=== PATIENT | female | born 1960 | race Caucasian/White ===

== ENCOUNTER 2019-06-02 13:00 | Outpatient (RCR) | payer BC, SELFPAY | END 2019-06-02 14:00 | disposition home or self-care (01) | LOC: PT 13:00 | PROVIDERS: Family Provider Family Medicine; Visit Provider Family Medicine | DX: I89.0 Lymphedema, not elsewhere classified (principal); R60.9 Edema, unspecified | CPT/HCPCS: 97140; 97162; 97164; 97760 ==

== ENCOUNTER 2020-04-05 13:00 | Outpatient (RCR) | payer BC, SELFPAY | END 2020-04-05 13:05 | disposition home or self-care (01) | LOC: PT 13:00 | PROVIDERS: Visit Provider Family Medicine | DX: I89.0 Lymphedema, not elsewhere classified (principal) | CPT/HCPCS: 97033; 97035; 97140; 97163; 97164 ==

== ENCOUNTER 2021-10-17 14:00 | Outpatient (RCR) | payer BC, SELFPAY | END 2021-10-17 14:05 | disposition home or self-care (01) | LOC: PT 14:00 | PROVIDERS: Visit Provider Family Medicine | DX: I89.0 Lymphedema, not elsewhere classified (principal) | CPT/HCPCS: 97140; 97162; 97164 ==

== ENCOUNTER → 2022-06-23 14:03 | Outpatient (CLI) | payer BC, SELFPAY ==
[2022-06-23 14:54] LABS: Blood Urea Nitrogen 18 mg/dl (7-17); Estimated Glomerular Filt Rate 102 ml/min (>60); GFR (African American) 123 ML/MIN (>60)
--- NOTE | 2022-06-23 15:15 | MR_ITS ---
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 SX September 2021. Has had constant infection since TECHNIQUE: Imaging protocol: Magnetic resonance imaging of the left lower extremity without and with contrast. Exam focused on the tibia and fibula. Contrast material: PROHANCE; Contrast volume: 27 ml; Contrast route: IV; COMPARISON: No relevant prior studies available. FINDINGS: Limitations: This study is limited due to the absence of consistent cross-referencing between sequences to assess specific findings. Nonanatomic orientation of the coronal and sagittal reformatted images that are not oriented relative to the lower leg but instead are oriented relative to the scanner gantry limits localization of findings. The large field of view needed to image the lower leg precludes a detailed evaluation of the knee and ankle. There is additionally motion artifact, inhomogeneous fat suppression, and artifact presumed due to being too close to the periphery of the scanner. Bones/joints: There is no evidence of osteomyelitis. The bone marrow has heterogeneous signal intensity. The marrow signal intensity is not as low in signal as muscle on T1-weighted sequences and there are preserved foci of marrow fat, making this heterogeneity unlikely to be malignant. Hematopoietic red bone marrow reconversion is favored. This could be confirmed on future MR imaging by adding an opposed phase sequence. Muscles: The muscles are moderately atrophied. Moderate nonspecific edema involves the medial and lateral heads of the gastrocnemius muscle with the remainder of the muscles demonstrating mild edema. This may be due to myositis or denervation. Soft tissues: There is a prominent amount of edema in the subcutaneous fat diffusely. In the subcutaneous fat of the lower leg anteromedially, there is a peripherally enhancing complex fluid collection. This measures 1.1 x 4.1 x 1.2 cm (AP, ML, CC), as measured on series 13/images 11-12 and series 33/image 5. This may represent an abscess. This collection is located 2.3 cm deep to the skin surface and would likely be amenable to percutaneous sampling under ultrasound guidance. Scattered foci of thick-walled hypoenhancing fat suggests fat necrosis. Other findings: Meniscal tearing is suspected. On one of the localizer sequences, the contralateral right lower leg is partially included demonstrating an ovoid fluid collection in the anterior lower leg subcutaneous fat that measures 1.4 x 7.3 cm (AP, ML), as measured on series 2/image 10. This is located 2 cm deep to the skin surface and would likely be amenable to percutaneous sampling under ultrasound guidance. IMPRESSION: 1. Incompletely imaged contralateral right lower leg demonstrating an ovoid fluid collection in the proximal anterior subcutaneous fat measuring 1.4 x 7.3 cm. This is located 2 cm deep to the skin surface and would likely be amenable to percutaneous sampling under ultrasound guidance. 2. Possible abscess involving the subcutaneous fat of the anteromedial left lower leg measuring 1.1 x 4.1 x 1.2 cm. Collection is located 2.3 cm deep to the skin surface and would likely be amenable to percutaneous sampling under ultrasound guidance. 3. Severe diffuse subcutaneous edema consistent with cellulitis. 4. No osteomyelitis. 5. Heterogeneous bone marrow signal, with benign hematopoietic red bone m
== END ==
PROVIDERS: PCP Family Medicine; Visit Provider Internal Medicine Infectious Disease
DX: I89.0 Lymphedema, not elsewhere classified (principal)
CPT/HCPCS: 36415; 73720; 82565; 84520; A9576

== ENCOUNTER 2022-12-21 15:00 | Outpatient (RCR) | payer BC, SELFPAY | END 2022-12-21 15:05 | disposition home or self-care (01) | LOC: OT 15:00 | PROVIDERS: PCP Family Medicine; Visit Provider Orthopaedic Surgery Adult Reconstructive Orthopaedic Surgery | DX: S52.301A Unspecified fracture of shaft of right radius, initial encounter for closed fracture (principal); M25.531 Pain in right wrist | CPT/HCPCS: 97010; 97014; 97035; 97110; 97140; 97164; 97166; 97530; G0283 ==

== ENCOUNTER 2023-05-21 14:00 | Outpatient (RCR) | payer BC, SELFPAY | END 2023-05-21 15:20 | disposition home or self-care (01) | LOC: PT 14:00 | PROVIDERS: Visit Provider Podiatrist | DX: R26.81 Unsteadiness on feet (principal) | CPT/HCPCS: 97110; 97112; 97140; 97163; 97164; 97530; 97535 ==

== ENCOUNTER 2024-02-08 09:31 | Outpatient (CLI) | payer BC, SELFPAY ==
--- NOTE | 2024-02-08 09:35 | XR_ITS ---
FINAL REPORT CLINICAL HISTORY: right knee pain COMPARISON: None FINDINGS: Three views of the right knee reveal a vertical lucency in the medial tibial plateau, and a nondisplaced fracture is not excluded. The bony alignment is normal. Moderate degenerative change is present. There is no evidence of joint effusion. No localized soft tissue abnormality is identified. IMPRESSION: Vertical lucency in the medial tibial plateau, nondisplaced fracture is not excluded. As clinically indicated, MRI would be helpful for further evaluation. Moderate degenerative change. Reviewed, Interpreted and Dictated by Justice Gill III, MD Transcribed by Анна Sinha Authenticated and [facility]
== END 2024-02-08 23:59 | disposition home or self-care (01) ==
LOC: RAD 09:32
PROVIDERS: PCP Family Medicine; Visit Provider Physician Assistant
DX: M25.561 Pain in right knee (principal)
CPT/HCPCS: 73562

== ENCOUNTER 2024-03-24 13:00 | Outpatient (RCR) | payer BC, SELFPAY | END 2024-03-24 23:59 | disposition home or self-care (01) | LOC: PT 13:00 | PROVIDERS: Visit Provider Family Medicine | DX: I89.0 Lymphedema, not elsewhere classified (principal); T81.40XD Infection following a procedure, unspecified, subsequent encounter | CPT/HCPCS: 97140; 97163; 97164; 97760 ==

== ENCOUNTER 2024-04-28 13:00 | Outpatient (RCR) | payer BC, SELFPAY | END 2024-04-28 23:59 | disposition home or self-care (01) | LOC: PT 13:00 | PROVIDERS: Visit Provider Family Medicine | DX: M79.662 Pain in left lower leg (principal); R60.9 Edema, unspecified; T81.40XD Infection following a procedure, unspecified, subsequent encounter | CPT/HCPCS: 97140; 97164 ==

== ENCOUNTER 2024-05-26 13:00 | Outpatient (RCR) | payer BC, SELFPAY | END 2024-05-26 23:59 | disposition home or self-care (01) | LOC: PT 13:00 | PROVIDERS: Visit Provider Family Medicine | DX: I89.0 Lymphedema, not elsewhere classified (principal); T81.40XD Infection following a procedure, unspecified, subsequent encounter | CPT/HCPCS: 97140; 97164 ==

== ENCOUNTER 2024-06-20 15:00 | Outpatient (RCR) | payer BC, SELFPAY | END 2024-06-20 23:59 | disposition home or self-care (01) | LOC: PT 15:00 | PROVIDERS: Visit Provider Family Medicine | DX: T81.40XD Infection following a procedure, unspecified, subsequent encounter (principal); I89.0 Lymphedema, not elsewhere classified | CPT/HCPCS: 97140 ==

== ENCOUNTER 2024-07-21 12:39 | Emergency (ER) | payer BC, SELFPAY ==
[2024-07-21 12:52] VITALS: BP 155/79; PULSE 65; RESP 20; TEMP 36.8; O2SAT 99; BMI 56.3
[2024-07-21 13:00] VITALS: BP 134/71; PULSE 58; O2SAT 99
--- OUTSIDE RECORDS SUMMARY | 2024-07-21 13:06 | XMS_ITS | Data Portability ---
Author Organization [facility] ADMIN Address [address] [place] [id number] Care Team Providers Care Software Test Technician Name Role Phone DENEEN CAMARA Primary Care Provider [phone] Assessment Encounter Date Assessment Date Assessment LastModified by Organization Details LastModified Time 12/22/2022 12/22/2022 I have encouraged her to first speak with ID about abx for the potential drainage which may be more lymph related. If needed we can obtain a culture to help. check labs pt will resume vitamin levels Not available 12/22/2022 12:54:55 05/31/2023 05/31/2023 check labs as noted below adjust medication and supplements pending lab result she will schedule her mammogram and will call if cologuard is to obtain new kit from the company Not available 05/31/2023 12:58:32 12/29/2023 12/29/2023 trial of glp1 if covered check labs except thyroid, plan to do this after she has been back on med for 6+ weeks consider zetia pending lipid result trial of wellbutrin Not available 12/29/2023 17:12:16 03/27/2024 03/27/2024 trial of doxy cold therapy to area elevation compression f/u if needed, may need to see ID if not resolving discussed a trial of 30 days of rybelsus, sample given Not available 03/27/2024 15:16:33 Plan of Treatment Reminders Order Date Submit Date Provider Last Modified By Organization Details Last Modified Time Details Appointments None recorded. Lab lipid panel, serum 2023 024 [facility] ([facility], [address] [place] [address] Ct, [place], [address], 4 11:14:34 CMP, serum or plasma 2023 024 [facility] ([place]), [address] [facility], [place], [address], 4 11:14:32 vitamin B6 + metabolites panel, serum or plasma 2023 024 [facility] ([place]), [address] [facility], [place], [address], 4 11:14:35 vitamin A (retinol), serum 2023 024 [facility], [address], [address], [place], [address], 4 06:08:01 CBC w/ auto diff 2023 024 [facility], [address], [address], [place], [address], 4 06:07:54 lipid panel, serum 2023 024 [facility], [address], [address], [place], [address], 4 06:07:57 CMP, serum or plasma 2023 024 [facility], [address], [address], [place], [address], 4 06:07:56 vitamin B6 + metabolites panel, serum or plasma 2023 024 [facility], [address], [address], [place], [address], 4 06:08:00 vitamin B12 + folate, serum or blood 2023 024 [facility], [address], [address], [place], [address], 4 06:07:59 vitamin D, 25-hydroxy, total, serum 2023 024 [facility]Y [facility], [address], [address], [place], [address], 4 06:08:02 HbA1c (hemoglobin A1c), blood 2023 024 [facility]Y [facility], [address], [address], [place], [address], 4 06:08:00 thyroid panel, serum 2023 024 [facility], [address], [address], [place], [address], 4 06:07:58 thyroid panel, serum 2022 023 [facility], [address], [address], [place], [address], 3 12:39:06 vitamin D, 25-hydroxy, total, serum 2022 023 [facility], [address], [address], [place], [address], 3 12:39:09 lipid panel, serum 2022 023 [facility], [address], [address], [place], [address], 3 12:39:05 CMP, serum or plasma 2022 023 [facility], [address], [address], [place], [address], 3 12:39:03 vitamin B6 + metabolites panel, serum or plasma 2022 023 [facility], [address], [address], [place], [address], 3 12:39:08 vitamin B12 + folate, serum or blood 2022 023 [facility], [address], [address], [place], [address], 3 12:39:07 CBC w/ auto diff 2022 023 [facility], [address], [address], [place], [address], 3 12:39:02 Referral None recorded. Procedures None recorded. Surgeries None recorded. Imaging DEXA [address] (Centralized Scheduling), [address] [facility], [place], [address], 4 11:37:36 Medication Orders doxycycline hyclate 100 mg capsule 2023 024 [facility], [address], [place], [address], 4 08:57:00 levothyroxi ne 50 mcg tablet 2023 024 [facility], [address] [place], [address], 4 14:46:18 Wegovy 0.25 mg/0.5 mL subcutaneou s pen injector 2023 024 [email or web address] [email or web address] [facility], [address] [place], [address], 4 14:15:40 amitriptyli ne 50 mg tablet 2023 024 [facility], [address] [facility] [address], [place], [address], 5 13:37:27 bupropion HCl XL 150 mg 24 hr tablet, extended release 2023 024 [facility], [address] [facility] [address], [place], [address], 5 13:37:27 levothyroxi ne 50 mcg tablet 2022 023 [facility] [id number], [address] [place], [address], 14:37:17 Patient TargetsNo targets recorded. Patient InstructionsNo instructions recorded. Reason for Referral None Reported. Results Created Date Observation Date Name Description Value Unit Range Abnormal Flag Note LastModifiedBy Organization Detail LastModifiedTime 12/23/1912/23/2022 CBC WITH DIFFE RENTI AL/PL ATELE T WBC 5.4 x10e3 /uL 3.4-10 .8 Not Available [facility] ([facility]) [address] [place], [address], 12/25/2022 12:39:02 12/23/1912/23/2022 CBC WITH DIFFE RENTI AL/PL ATELE T RBC 4.53 x10e6 /uL 3.77-5 .28 Not Available [facility] ([facility]) [address] [place], [address], 12/25/2022 12:39:02 12/23/1912/23/2022 CBC WITH DIFFE RENTI AL/PL ATELE T hemoglobin 12.9 g/dL 11.1-1 5.9 Not Available [facility] ([facility]) [address] [place], [address], 12/25/2022 12:39:02 12/23/1912/23/2022 CBC WITH DIFFE RENTI AL/PL ATELE T hematocrit 39.4 % 34.0-4 6.6 Not Available [facility] ([facility]) [address] [place], [address], 12/25/2022 12:39:02 12/23/19 23 12/23/2022 CBC WITH DIFFE RENTI AL/PL ATELE T MCV 87 fL 79-97 Not Available [facility] ([facility]) [address] [facility], [place], [address], 12/25/2022 12:39:02 12/23/1912/23/2022 CBC WITH DIFFE RENTI AL/PL ATELE T MCH 28.5 pg 26.6-3 3.0 Not Available [facility] ([facility]) [address] [place], [address], 12/25/2022 12:39:02 12/23/1912/23/2022 CBC WITH DIFFE RENTI AL/PL ATELE T MCHC 32.7 g/dL 31.5-3 5.7 Not Available [facility] ([facility]) [address] [place], [address], 12/25/2022 12:39:02 12/23/1912/23/2022 CBC WITH DIFFE RENTI AL/PL ATELE T RDW 14.8 % 11.7-1 5.4 Not Available [facility] ([facility]) [address] [place], [address], 12/25/2022 12:39:02 12/23/1912/23/2022 CBC WITH DIFFE RENTI AL/PL ATELE T platelets 193 x10e3 /uL 150-45 0 Not Available [facility] ([facility]) [address] [place], [address], 12/25/2022 12:39:02 12/23/19 23 12/23/2022 CBC WITH DIFFE RENTI AL/PL ATELE T neutrophils 63 % not estab. Not Available [facility] ([facility]) [address] [facility], [place], [address], 12/25/2022 12:39:02 12/23/19 23 12/23/2022 CBC WITH DIFFE RENTI AL/PL ATELE T lymphs 26 % not estab. Not Available [facility] ([facility]) [address] [facility], [place], [address], 12/25/2022 12:39:02 12/23/19 23 12/23/2022 CBC WITH DIFFE RENTI AL/PL ATELE T monocytes 8 % not estab. Not Available [facility] ([facility]) [address] [facility], [place], [address], 12/25/2022 12:39:02 12/23/19 23 12/23/2022 CBC WITH DIFFE RENTI AL/PL ATELE T eos 2 % not estab. Not Available [facility] ([facility]) [address] [facility], [place], [address], 12/25/2022 12:39:02 12/23/19 23 12/23/2022 CBC WITH DIFFE RENTI AL/PL ATELE T basos 1 % not estab. Not Available [facility] ([facility]) [address] [facility], [place], [address], 12/25/2022 12:39:02 12/23/19 23 12/23/2022 CBC WITH DIFFE RENTI AL/PL ATELE T immature cells WOOL PULLER Not Available [facility] ([facility]) [address] [place], [address], 12/25/2022 12:39:02 12/23/19 23 12/23/2022 CBC WITH DIFFE RENTI AL/PL ATELE T neutrophils (absolute) 3.4 x10e3 /uL 1.4-7. 0 Not Available [facility] ([facility]) [address] [place], [address], 12/25/2022 12:39:02 12/23/19 23 12/23/2022 CBC WITH DIFFE RENTI AL/PL ATELE T lymphs (absolute) 1.4 x10e3 /uL 0.7-3. 1 Not Available [facility] ([facility]) [address] [facility], [place], [address], 12/25/2022 12:39:02 12/23/19 23 12/23/2022 CBC WITH DIFFE RENTI AL/PL ATELE T monocytes(ab solute) 0.4 x10e3 /uL 0.1-0. 9 Not Available [facility] ([facility]) [address] [facility], [place], [address], 12/25/2022 12:39:02 12/23/19 23 12/23/2022 CBC WITH DIFFE RENTI AL/PL ATELE T eos (absolute) 0.1 x10e3 /uL 0.0-0. 4 Not Available [facility] ([facility]) [address] [facility], [place], [address], 12/25/2022 12:39:02 12/23/19 23 12/23/2022 CBC WITH DIFFE RENTI AL/PL ATELE T baso (absolute) 0.0 x10e3 /uL 0.0-0. 2 Not Available [facility] ([facility]) [address] [facility], [place], [address], 12/25/2022 12:39:02 12/23/19 23 12/23/2022 CBC WITH DIFFE RENTI AL/PL ATELE T immature granulocytes 0 % not estab. Not Available [facility] ([facility]) [address] [facility], [place], [address], 12/25/2022 12:39:02 12/23/19 23 12/23/2022 CBC WITH DIFFE RENTI AL/PL ATELE T immature grans (abs) 0.0 x10e3 /uL 0.0-0. 1 Not Available [facility] ([facility]) [address], [place], [address], 12/25/2022 12:39:02 12/23/19 23 12/23/2022 CBC WITH DIFFE RENTI AL/PL ATELE T NRBC WOOL PULLER Not Available [facility] ([facility]) [address], [place], [address], 12/25/2022 12:39:02 12/23/19 23 12/23/2022 CBC WITH DIFFE RENTI AL/PL ATELE T hematology comments: WOOL PULLER Not Available [facility] ([facility]) [address], [place], [address], 12/25/2022 12:39:02 12/23/19 23 12/23/2022 COMP. METAB OLIC PANEL (14) glucose 100 mg/dL 70-99 above high normal Not Available [facility] ([facility]) [address] [facility], [place], [address], 12/25/2022 12:39:03 12/23/19 23 12/23/2022 COMP. METAB OLIC PANEL (14) BUN 12 mg/dL 8-27 Not Available [facility] ([facility]) [address] [place], [address], 12/25/2022 12:39:03 12/23/19 23 12/23/2022 COMP. METAB OLIC PANEL (14) creatinine 0.59 mg/dL 0.57-1 .00 Not Available [facility] ([facility]) [address] [place], [address], 12/25/2022 12:39:03 12/23/19 23 12/23/2022 COMP. METAB OLIC PANEL (14) eGFR 102 mL/mi n/1.7 3 >59 Not Available [facility] ([facility]) [address] [facility], [place], [address], 12/25/2022 12:39:03 12/23/19 23 12/23/2022 COMP. METAB OLIC PANEL (14) BUN/creatini ne ratio 03-25 Not Available [facility] ([facility]) [address] [facility], [place], [address], 12/25/2022 12:39:03 12/23/19 23 12/23/2022 COMP. METAB OLIC PANEL (14) sodium 142 mmol/ L 134-14 4 Not Available [facility] ([facility]) [address] [place], [address], 12/25/2022 12:39:03 12/23/19 23 12/23/2022 COMP. METAB OLIC PANEL (14) potassium 4.1 mmol/ L 3.5-5. 2 Not Available [facility] ([facility]) [address] [place], [address], 12/25/2022 12:39:03 12/23/19 23 12/23/2022 COMP. METAB OLIC PANEL (14) chloride 104 mmol/ L 96-106 Not Available [facility] ([facility]) [address] [place], [address], 12/25/2022 12:39:03 12/23/19 23 12/23/2022 COMP. METAB OLIC PANEL (14) carbon dioxide, total 23 mmol/ L - Not Available [facility] ([facility]) [address] [place], [address], 12/25/2022 12:39:03 12/23/19 23 12/23/2022 COMP. METAB OLIC PANEL (14) calcium 8.8 mg/dL 8.7-10 .3 Not Available [facility] ([facility]) [address] [place], [address], 12/25/2022 12:39:03 12/23/19 23 12/23/2022 COMP. METAB OLIC PANEL (14) protein, total 6.1 g/dL 6.0-8. 5 Not Available [facility] ([facility]) [address] [place], [address], 12/25/2022 12:39:03 12/23/19 23 12/23/2022 COMP. METAB OLIC PANEL (14) albumin 4.0 g/dL 3.9-4. 9 Not Available [facility] ([facility]) [address] [place], [address], 12/25/2022 12:39:03 12/23/19 23 12/23/2022 COMP. METAB OLIC PANEL (14) globulin, total 2.1 g/dL 1.5-4. 5 Not Available [facility] ([facility]) [address] [place], [address], 12/25/2022 12:39:03 12/23/19 23 12/23/2022 COMP. METAB OLIC PANEL (14) A/G ratio 1.9 1.2-2. 2 Not Available [facility] ([facility]) [address] [place], [address], 12/25/2022 12:39:03 12/23/19 23 12/23/2022 COMP. METAB OLIC PANEL (14) bilirubin, total 0.7 mg/dL 0.0-1. 2 Not Available [facility] ([facility]) [address] [place], [address], 12/25/2022 12:39:03 12/23/19 23 12/23/2022 COMP. METAB OLIC PANEL (14) alkaline phosphatase 128 IU/L 44-121 above high normal Not Available [facility] ([facility]) [address] [place], [address], 12/25/2022 12:39:03 12/23/19 23 12/23/2022 COMP. METAB OLIC PANEL (14) AST (SGOT) 35 IU/L 0-40 Not Available [facility] ([facility]) [address] [place], [address], 12/25/2022 12:39:03 12/23/19 23 12/23/2022 COMP. METAB OLIC PANEL (14) ALT (SGPT) 30 IU/L 0-32 Not Available [facility] ([facility]) [address] [place], [address], 12/25/2022 12:39:03 12/23/19 23 12/23/2022 LIPID PANEL cholesterol, total 245 mg/dL 100-19 9 above high normal Not Available [facility] ([facility]) [address] [place], [address], 12/25/2022 12:39:05 12/23/19 23 12/23/2022 LIPID PANEL triglyceride s 67 mg/dL 0-149 Not Available [facility] ([facility]) [address] [place], [address], 12/25/2022 12:39:05 12/23/19 23 12/23/2022 LIPID PANEL HDL cholesterol 83 mg/dL >39 Not Available [facility] ([facility]) [address] [place], [address], 12/25/2022 12:39:05 12/23/19 23 12/23/2022 LIPID PANEL VLDL cholesterol deborah 11 mg/dL 5-40 Not Available [facility] ([facility]) [address] [place], [address], 12/25/2022 12:39:05 12/23/19 23 12/23/2022 LIPID PANEL LDL chol calc ([facility]) 151 mg/dL 0-99 above high normal Not Available [facility] ([facility]) [address] [place], [address], 12/25/2022 12:39:05 09/12/23/2022 LIPID PANEL comment: WOOL PULLER Not Available [facility] ([facility]) [address] [place], [address], 12/25/2022 12:39:05 12/23/19 23 12/23/2022 THYRO ID PROFI LE II TSH 4.580 uIU/m L 0.450- 4.500 above high normal Not Available [facility] ([facility]) [address] [place], [address], 12/25/2022 12:39:06 12/23/19 23 12/23/2022 THYRO ID PROFI LE II thyroxine (T4) 6.8 ug/dL 4.5-12 .0 Not Available [facility] ([facility]) [address] [place], [address], 12/25/2022 12:39:06 12/23/19 23 12/23/2022 THYRO ID PROFI LE II T3 uptake 29 % 24-39 Not Available [facility] ([facility]) [address] [place], [address], 12/25/2022 12:39:06 12/23/1912/23/2022 THYRO ID PROFI LE II free thyroxine index 2.0 1.2-4. 9 Not Available [facility] ([facility]) [address] [place], [address], 12/25/2022 12:39:06 12/23/1912/23/2022 THYRO ID PROFI LE II triiodothyro nine (T3) 103 NG/dL 71-180 Not Available [facility] ([facility]) [address] [place], [address], 12/25/2022 12:39:06 12/23/19 23 12/23/2022 VITAM IN B12 AND FOLAT E vitamin B12 1291 pg/mL 232-12 45 above high normal Not Available [facility] ([facility]) [address] [place], [address], 12/25/2022 12:39:07 12/23/19 23 12/23/2022 VITAM IN B12 AND FOLAT E folate (folic acid), serum 4.1 NG/mL >3.0 A serum folat e garcía ntrat ion of less than 3.1 ng/mL is consi dered to repre sent clini deborah defic iency . Not Available [facility] ([facility]) [address] [facility], [place], [address], 12/25/2022 12:39:07 12/23/19 23 12/25/2022 VITAM IN B6, PLASM A vitamin B6 22.2 ug/L 3.4-65 .2 Defic iency : <3.4 Feli nal: 3.4 - 5.1 Adequ ate: >5.1 Not Available [facility] ([facility]) [address] [facility], [place], [address], 12/25/2022 12:39:08 12/23/19 23 12/23/2022 VITAM IN D, 25-HY DROXY vitamin D, 25-hydroxy 35.2 NG/mL 30.0-1 00.0 Vitam in D defic iency has been defin ed by the Insti tute of Medic ine and an Endoc rine Socie ty pract ice guide line as a level of serum 25-OH vitam in D less than 20 ng/mL (1,2) . The Endoc rine Socie ty went on to furth er defin e vitam in D insuf ficie ncy as a level betwe en 21 and 29 ng/mL (2). 1. IOM (Inst itute of Medic ine). 2010. Dieta ry refer ence jamar es for calci um and D. Cheryl hernandez [place]: The Natio nal [facility] Press . 2. Lorena junior [place], Binkarina ey [place], Taras off-F errar i CONNOLLY, et al. Evalu ation , treat ment, and preve ntion of vitam in D defic iency : an Endoc rine Socie ty clini deborah pract ice guide line. JCEM. 2010; 96(7) :1911 -30. Not Available [facility] ([facility]) [address] [facility], [place], [address], 12/25/2022 12:39:09 12/24/19 23 12/28/2022 ANAER OBIC AND AEROB IC CULTU RE anaerobic culture FINAL REPORT Not Available [facility] ([facility]) [address] [facility], [place], [address], 01/01/2023 14:36:39 12/24/19 23 12/28/2022 ANAER OBIC AND AEROB IC CULTU RE result 1 COMMEN T No anaer obic growt h in 72 hours . Not Available [facility] ([facility]) [address] [facility], [place], [address], 01/01/2023 14:36:39 12/24/19 23 01/01/2023 ANAER OBIC AND AEROB IC CULTU RE aerobic culture FINAL REPORT abnormal Not Available [facility] ([facility]) [address] [facility], [place], [address], 01/01/2023 14:36:39 12/24/19 23 01/01/2023 ANAER OBIC AND AEROB IC CULTU RE result 1 COMMEN T abnormal Methi cilli n - resis tant Staph yloco ccus aureu s Based on resis tance to oxaci llin this isola te would be resis tant to all curre ntly avail able beta- lacta m antim icrob ial agent s, with the excep tion of the newer cepha lospo rins with anti- MRSA activ ity, such as Cefta rolin e Moder ate growt h Not Available [facility] ([facility]) [address] [facility], [place], [address], 01/01/2023 14:36:39 12/24/19 23 01/01/2023 ANAER OBIC AND AEROB IC CULTU RE result 2 KLEBSI YANNICK OXYTOC A abnormal Light growt h Not Available [facility] ([facility]) [address] [facility], [place], [address], 01/01/2023 14:36:39 12/24/19 23 01/01/2023 ANAER OBIC AND AEROB IC CULTU RE result 3 COMMEN T abnormal Beta hemol ytic Strep tococ cus, group B Heavy growt h Penic illin and ampic illin are drugs of choic e for treat ment of beta- hemol ytic strep tococ deborah infec tions . Susce ptibi lity testi ng of penic illin s and other beta- lacta m agent s appro jose by the FDA for treat ment of beta- hemol ytic strep tococ deborah infec tions need not be perfo rmed routi dafne becau se nonsu scept ible isola susie are extre elkin rare in any beta- hemol ytic strep tococ cus and have not been repor cathie for Strep tococ cus pyoge richard (grou p A). (CLSI ) Not Available [facility] ([facility]) [address] [facility], [place], [address], 01/01/2023 14:36:39 12/24/19 23 01/01/2023 ANAER OBIC AND AEROB IC CULTU RE antimicrobia l susceptibili ty COMMEN T S = Susce ptibl e; I = Inter media te; R = Resis tant P = Posit radha; N = Negat radha MICS are expre ssed in micro grams per mL Antib iotic RSLT# 1 RSLT# 2 RSLT# 3 RSLT# 4 Amoxi cilli n/Cla vulan ic Acid S Ampic illin R Cefep emerita S Ceftr iaxon e S Cefur oxime S Cipro floxa lester R S Clind amyci n S Eryth romyc in S Genta micin S S Imipe nem S Levof loxac in R S Linez olid S Merop enem S Oxaci llin R Penic illin R Rifam pin S Tetra cycli ne S S Tobra mycin S Trime thopr im/Maher lfa R S Vanco mycin S Not Available [facility] ([facility]) [address] [facility], [place], [address], 01/01/2023 14:36:39 05/31/19 24 06/01/2023 CBC WITH DIFFE RENTI AL/PL ATELE T WBC 4.9 x10e3 /uL 3.4-10 .8 Not Available [facility] ([facility]) [address] [facility], [place], [address], 06/07/2023 06:07:54 05/31/19 24 06/01/2023 CBC WITH DIFFE RENTI AL/PL ATELE T RBC 4.24 x10e6 /uL 3.77-5 .28 Not Available [facility] ([facility]) [address] [facility], [place], [address], 06/07/2023 06:07:54 05/31/19 24 06/01/2023 CBC WITH DIFFE RENTI AL/PL ATELE T hemoglobin 12.7 g/dL 11.1-1 5.9 Not Available [facility] ([facility]) [address] [facility], [place], [address], 06/07/2023 06:07:54 05/31/19 24 06/01/2023 CBC WITH DIFFE RENTI AL/PL ATELE T hematocrit 39.4 % 34.0-4 6.6 Not Available [facility] ([facility]) [address] [facility], [place], [address], 06/07/2023 06:07:54 05/31/19 24 06/01/2023 CBC WITH DIFFE RENTI AL/PL ATELE T MCV 93 fL 79-97 Not Available [facility] ([facility]) [address] [place], [address], 06/07/2023 06:07:54 05/31/19 24 06/01/2023 CBC WITH DIFFE RENTI AL/PL ATELE T MCH 30.0 pg 26.6-3 3.0 Not Available [facility] ([facility]) [address] [facility], [place], [address], 06/07/2023 06:07:54 05/31/19 24 06/01/2023 CBC WITH DIFFE RENTI AL/PL ATELE T MCHC 32.2 g/dL 31.5-3 5.7 Not Available [facility] ([facility]) [address] [facility], [place], [address], 06/07/2023 06:07:54 05/31/19 24 06/01/2023 CBC WITH DIFFE RENTI AL/PL ATELE T RDW 14.1 % 11.7-1 5.4 Not Available [facility] ([facility]) [address] [facility], [place], [address], 06/07/2023 06:07:54 05/31/19 24 06/01/2023 CBC WITH DIFFE RENTI AL/PL ATELE T platelets 185 x10e3 /uL 150-45 0 Not Available [facility] ([facility]) [address] [facility], [place], [address], 06/07/2023 06:07:54 05/31/19 24 06/01/2023 CBC WITH DIFFE RENTI AL/PL ATELE T neutrophils 65 % not estab. Not Available [facility] ([facility]) [address] [facility], [place], [address], 06/07/2023 06:07:54 05/31/19 24 06/01/2023 CBC WITH DIFFE RENTI AL/PL ATELE T lymphs 26 % not estab. Not Available [facility] ([facility]) [address] [facility], [place], [address], 06/07/2023 06:07:54 05/31/19 24 06/01/2023 CBC WITH DIFFE RENTI AL/PL ATELE T monocytes 5 % not estab. Not Available [facility] ([facility]) [address] [facility], [place], [address], 06/07/2023 06:07:54 05/31/19 24 06/01/2023 CBC WITH DIFFE RENTI AL/PL ATELE T eos 3 % not estab. Not Available [facility] ([facility]) [address] [place], [address], 06/07/2023 06:07:54 05/31/19 24 06/01/2023 CBC WITH DIFFE RENTI AL/PL ATELE T basos 1 % not estab. Not Available [facility] ([facility]) [address] [place], [address], 06/07/2023 06:07:54 05/31/19 24 06/01/2023 CBC WITH DIFFE RENTI AL/PL ATELE T immature cells WOOL PULLER Not Available [facility] ([facility]) [address] [place], [address], 06/07/2023 06:07:54 05/31/19 24 06/01/2023 CBC WITH DIFFE RENTI AL/PL ATELE T neutrophils (absolute) 3.2 x10e3 /uL 1.4-7. 0 Not Available [facility] ([facility]) [address] [place], [address], 06/07/2023 06:07:54 05/31/19 24 06/01/2023 CBC WITH DIFFE RENTI AL/PL ATELE T lymphs (absolute) 1.3 x10e3 /uL 0.7-3. 1 Not Available [facility] ([facility]) [address] [place], [address], 06/07/2023 06:07:54 05/31/19 24 06/01/2023 CBC WITH DIFFE RENTI AL/PL ATELE T monocytes(ab solute) 0.2 x10e3 /uL 0.1-0. 9 Not Available [facility] ([facility]) [address] [place], [address], 06/07/2023 06:07:54 05/31/19 24 06/01/2023 CBC WITH DIFFE RENTI AL/PL ATELE T eos (absolute) 0.1 x10e3 /uL 0.0-0. 4 Not Available [facility] ([facility]) [address] [facility], [place], [address], 06/07/2023 06:07:54 05/31/19 24 06/01/2023 CBC WITH DIFFE RENTI AL/PL ATELE T baso (absolute) 0.0 x10e3 /uL 0.0-0. 2 Not Available [facility] ([facility]) [address] [facility], [place], [address], 06/07/2023 06:07:54 05/31/19 24 06/01/2023 CBC WITH DIFFE RENTI AL/PL ATELE T immature granulocytes 0 % not estab. Not Available [facility] ([facility]) [address] [facility], [place], [address], 06/07/2023 06:07:54 05/31/19 24 06/01/2023 CBC WITH DIFFE RENTI AL/PL ATELE T immature grans (abs) 0.0 x10e3 /uL 0.0-0. 1 Not Available [facility] ([facility]) [address] [facility], [place], [address], 06/07/2023 06:07:54 05/31/19 24 06/01/2023 CBC WITH DIFFE RENTI AL/PL ATELE T NRBC WOOL PULLER Not Available [facility] ([facility]) [address] [facility], [place], [address], 06/07/2023 06:07:54 05/31/19 24 06/01/2023 CBC WITH DIFFE RENTI AL/PL ATELE T hematology comments: WOOL PULLER Not Available [facility] ([facility]) [address] [facility], [place], [address], 06/07/2023 06:07:54 05/31/19 24 06/01/2023 COMP. METAB OLIC PANEL (14) glucose 90 mg/dL 70-99 Not Available [facility] ([facility]) [address] [place], [address], 06/07/2023 06:07:56 05/31/19 24 06/01/2023 COMP. METAB OLIC PANEL (14) BUN 12 mg/dL 8-27 Not Available [facility] ([facility]) [address] [place], [address], 06/07/2023 06:07:56 05/31/19 24 06/01/2023 COMP. METAB OLIC PANEL (14) creatinine 0.58 mg/dL 0.57-1 .00 Not Available [facility] ([facility]) [address] [place], [address], 06/07/2023 06:07:56 05/31/19 24 06/01/2023 COMP. METAB OLIC PANEL (14) eGFR 103 mL/mi n/1.7 3 >59 Not Available [facility] ([facility]) [address] [place], [address], 06/07/2023 06:07:56 05/31/19 24 06/01/2023 COMP. METAB OLIC PANEL (14) BUN/creatini ne ratio 21 12-28 Not Available [facility] ([facility]) [address] [place], [address], 06/07/2023 06:07:56 05/31/19 24 06/01/2023 COMP. METAB OLIC PANEL (14) sodium 143 mmol/ L 134-14 4 Not Available [facility] ([facility]) [address] [place], [address], 06/07/2023 06:07:56 05/31/19 24 06/01/2023 COMP. METAB OLIC PANEL (14) potassium 4.0 mmol/ L 3.5-5. 2 Not Available [facility] ([facility]) [address] [place], [address], 06/07/2023 06:07:56 05/31/19 24 06/01/2023 COMP. METAB OLIC PANEL (14) chloride 106 mmol/ L 96-106 Not Available [facility] ([facility]) [address] [place], [address], 06/07/2023 06:07:56 05/31/19 24 06/01/2023 COMP. METAB OLIC PANEL (14) carbon dioxide, total 22 mmol/ L 20-29 Not Available [facility] ([facility]) [address] [place], [address], 06/07/2023 06:07:56 05/31/19 24 06/01/2023 COMP. METAB OLIC PANEL (14) calcium 8.6 mg/dL 8.7-10 .3 below low normal Not Available [facility] ([facility]) [address] [place], [address], 06/07/2023 06:07:56 05/31/19 24 06/01/2023 COMP. METAB OLIC PANEL (14) protein, total 6.0 g/dL 6.0-8. 5 Not Available [facility] ([facility]) [address] [place], [address], 06/07/2023 06:07:56 05/31/19 24 06/01/2023 COMP. METAB OLIC PANEL (14) albumin 3.7 g/dL 3.9-4. 9 below low normal Not Available [facility] ([facility]) [address] [place], [address], 06/07/2023 06:07:56 05/31/19 24 06/01/2023 COMP. METAB OLIC PANEL (14) globulin, total 2.3 g/dL 1.5-4. 5 Not Available [facility] ([facility]) [address] [place], [address], 06/07/2023 06:07:56 05/31/19 24 06/01/2023 COMP. METAB OLIC PANEL (14) A/G ratio 1.6 1.2-2. 2 Not Available [facility] ([facility]) [address] [place], [address], 06/07/2023 06:07:56 05/31/19 24 06/01/2023 COMP. METAB OLIC PANEL (14) bilirubin, total 0.6 mg/dL 0.0-1. 2 Not Available [facility] ([facility]) [address] [place], [address], 06/07/2023 06:07:56 05/31/19 24 06/01/2023 COMP. METAB OLIC PANEL (14) alkaline phosphatase 144 IU/L 44-121 above high normal Not Available [facility] ([facility]) [address] [place], [address], 06/07/2023 06:07:56 05/31/19 24 06/01/2023 COMP. METAB OLIC PANEL (14) AST (SGOT) 24 IU/L 0-40 Not Available [facility] [address] [facility] [place] [address], 06/07/2023 06:07:56 05/31/19 24 06/01/2023 COMP. METAB OLIC PANEL (14) ALT (SGPT) 15 IU/L 0-32 Not Available [facility] ([facility] [address] [facility] [place], [address], 06/07/2023 06:07:56 05/31/19 24 06/01/2023 LIPID PANEL cholesterol, total 257 mg/dL 100-19 9 above high normal Not Available [facility] ([facility] [address] [place], [address], 06/07/2023 06:07:57 05/31/19 24 06/01/2023 LIPID PANEL triglyceride s 66 mg/dL 0-149 Not Available [facility] ([facility]) [address] [place], [address], 06/07/2023 06:07:57 05/31/19 24 06/01/2023 LIPID PANEL HDL cholesterol 87 mg/dL >39 Not Available [facility] ([facility]) [address] [place], [address], 06/07/2023 06:07:57 05/31/19 24 06/01/2023 LIPID PANEL VLDL cholesterol deborah 11 mg/dL 5-40 Not Available [facility] ([facility]) [address] [place], [address], 06/07/2023 06:07:57 05/31/19 24 06/01/2023 LIPID PANEL LDL chol calc ([facility]) 159 mg/dL 0-99 above high normal Not Available [facility] ([facility]) [address] [place], [address], 06/07/2023 06:07:57 05/31/19 24 06/01/2023 LIPID PANEL comment: WOOL PULLER Not Available [facility] ([facility]) [address] [place], [address], 06/07/2023 06:07:57 05/31/19 24 06/01/2023 THYRO ID PROFI LE II TSH 1.450 uIU/m L 0.450- 4.500 Not Available [facility] ([facility]) [address] [place], [address], 06/07/2023 06:07:58 05/31/19 24 06/01/2023 THYRO ID PROFI LE II thyroxine (T4) 6.5 ug/dL 4.5-12 .0 Not Available [facility] ([facility]) [address] [place], [address], 06/07/2023 06:07:58 05/31/19 24 06/01/2023 THYRO ID PROFI LE II T3 uptake 27 % 24-39 Not Available [facility] ([facility]) [address] [facility] [place], [address], 06/07/2023 06:07:58 05/31/19 24 06/01/2023 THYRO ID PROFI LE II free thyroxine index 1.8 1.2-4. 9 Not Available [facility] ([facility]) [address] [place], [address], 06/07/2023 06:07:58 05/31/19 24 06/01/2023 THYRO ID PROFI LE II triiodothyro nine (T3) 68 NG/dL 71-180 below low normal Not Available [facility] ([facility]) [address] [place], [address], 06/07/2023 06:07:58 05/31/19 24 06/01/2023 VITAM IN B12 AND FOLAT E vitamin B12 1515 pg/mL 232-12 45 above high normal Not Available [facility] ([facility]) [address] [place], [address], 06/07/2023 06:07:59 05/31/19 24 06/01/2023 VITAM IN B12 AND FOLAT E folate (folic acid), serum 5.5 NG/mL >3.0 A serum folat e garcía ntrat ion of less than 3.1 ng/mL is consi dered to repre sent clini deborah defic iency . Not Available [facility] ([facility]) [address] [place], [address], 06/07/2023 06:07:59 05/31/19 24 06/01/2023 HEMOG LOBIN A1C hemoglobin A1C 5.5 % 4.8-5. 6 Predi abete s: 5.7 - 6.4 Diabe susie: >6.4 Glyce wayne contr ol for adult s with diabe susie: <7.0 Not Available [facility] ([facility]) [address] [facility], [place], [address], 06/07/2023 06:07:59 05/31/19 24 06/04/2023 VITAM IN B6, PLASM A vitamin B6 2.2 ug/L 3.4-65 .2 below low normal Defic iency : <3.4 Feli nal: 3.4 - 5.1 Adequ ate: >5.1 Not Available [facility] ([facility]) [address] [facility], [place], [address], 06/07/2023 06:08:00 05/31/19 24 06/07/2023 VITAM IN A, SERUM vitamin A 27.3 ug/dL 22.0-6 9.5 Refer ence inter vals for vitam in A deter mined from [facility] inter nal studi es. Indiv idual s with vitam in A less than 20 ug/dL are consi dered vitam in A defic ient and those with serum garcía ntrat ions less than 10 ug/dL are consi dered sever marlene defic ient. This test was rick falcon and its perfo rmanc e austen cteri stics deter mined by [facility]. It has not been clear ed or appro jose by the Food and Drug Admin istra tion. Not Available [facility] ([facility]) [address] [facility], [place], [address], 06/07/2023 06:08:01 05/31/19 24 06/01/2023 VITAM IN D, 25-HY DROXY vitamin D, 25-hydroxy 29.0 NG/mL 30.0-1 00.0 below low normal Vitam in D defic iency has been defin ed by the Insti tute of Medic ine and an Endoc rine Socie ty pract ice guide line as a level of serum 25-OH vitam in D less than 20 ng/mL (1,2) . The Endoc rine Socie ty went on to [facility] defin e vitam in D insuf ficie ncy as a level betwe en 21 and 29 ng/mL (2). 1. IOM (Inst itute of Medic ine). 2009. Dieta ry refer ence jamar es for calci um and D. Cheryl hernandez [place]: [facility] . 2. Holic k MF, Binkl ey [place], Bisch off-F errar i CONNOLLY, et al. Evalu ation , treat ment, and preve ntion of vitam in D defic iency : an Endoc rine Socie clini deborah pract ice guide line. JCEM. 2010; 96(7) :1911 -30. Not Available [facility] ([facility]) [address] [place], [address], 06/07/2023 06:08:02 02/04/20 24 02/05/2024 COMP. METAB OLIC PANEL (14) glucose 85 mg/dL 70-99 normal Not Available [facility] ([facility]) [address] [place], [address], 02/09/2024 11:14:32 02/04/20 24 02/05/2024 COMP. METAB OLIC PANEL (14) BUN 8 mg/dL 8-27 normal Not Available [facility] ([facility]) [address] [place], [address], 02/09/2024 11:14:32 02/04/20 24 02/05/2024 COMP. METAB OLIC PANEL (14) creatinine 0.52 mg/dL 0.57-1 .00 below low normal Not Available [facility] ([facility]) [address] [place], [address], 02/09/2024 11:14:32 02/04/20 24 02/05/2024 COMP. METAB OLIC PANEL (14) eGFR 105 mL/mi n/1.7 3 >59 normal Not Available [facility] ([facility]) [address] [place], [address], 02/09/2024 11:14:32 02/04/20 24 02/05/2024 COMP. METAB OLIC PANEL (14) BUN/creatini ne ratio 15 12-28 normal Not Available [facility] ([facility]) [address] [facility], [place], [address], 02/09/2024 11:14:32 02/04/20 24 02/05/2024 COMP. METAB OLIC PANEL (14) sodium 143 mmol/ L 134-14 4 normal Not Available [facility] ([facility]) [address] [facility] [place], [address], 02/09/2024 11:14:32 02/04/20 24 02/05/2024 COMP. METAB OLIC PANEL (14) potassium 4.2 mmol/ L 3.5-5. 2 normal Not Available [facility] ([facility]) [address] [facility], [place], [address], 02/09/2024 11:14:32 02/04/20 24 02/05/2024 COMP. METAB OLIC PANEL (14) chloride 105 mmol/ L 96-106 normal Not Available [facility] ([facility]) [address] [facility], [place], [address], 02/09/2024 11:14:32 02/04/20 24 02/05/2024 COMP. METAB OLIC PANEL (14) carbon dioxide, total 25 mmol/ L 20-29 normal Not Available [facility] ([facility]) [address] [place], [address], 02/09/2024 11:14:32 02/04/20 24 02/05/2024 COMP. METAB OLIC PANEL (14) calcium 8.8 mg/dL 8.7-10 .3 normal Not Available [facility] ([facility]) [address] [facility] [place], [address], 02/09/2024 11:14:32 02/04/20 24 02/05/2024 COMP. METAB OLIC PANEL (14) protein, total 5.9 g/dL 6.0-8. 5 below low normal Not Available [facility] ([facility]) [address] [place], [address], 02/09/2024 11:14:32 02/04/20 24 02/05/2024 COMP. METAB OLIC PANEL (14) albumin 4.0 g/dL 3.9-4. 9 normal Not Available [facility] ([facility]) [address] [place], [address], 02/09/2024 11:14:32 02/04/20 24 02/05/2024 COMP. METAB OLIC PANEL (14) globulin, total 1.9 g/dL 1.5-4. 5 Not Available [facility] ([facility]) [address] [place], [address], 02/09/2024 11:14:32 02/04/20 24 02/05/2024 COMP. METAB OLIC PANEL (14) bilirubin, total 0.6 mg/dL 0.0-1. 2 normal Not Available [facility] ([facility]) [address] [place], [address], 02/09/2024 11:14:32 02/04/20 24 02/05/2024 COMP. METAB OLIC PANEL (14) alkaline phosphatase 163 IU/L 44-121 above high normal Not Available [facility] ([facility]) [address] [place], [address], 02/09/2024 11:14:32 02/04/20 24 02/05/2024 COMP. METAB OLIC PANEL (14) AST (SGOT) 26 IU/L 0-40 normal Not Available [facility] ([facility]) [address] [facility] [place], [address], 02/09/2024 11:14:32 02/04/20 24 02/05/2024 COMP. METAB OLIC PANEL (14) ALT (SGPT) 15 IU/L 0-32 normal Not Available [facility] ([facility]) [address] [place], [address], 02/09/2024 11:14:32 02/04/20 24 02/05/2024 LIPID PANEL cholesterol, total 254 mg/dL 100-19 9 above high normal Not Available [facility] ([facility]) [address] [place], [address], 02/09/2024 11:14:33 02/04/20 24 02/05/2024 LIPID PANEL triglyceride s 79 mg/dL 0-149 normal Not Available [facility] ([facility]) [address] [place], [address], 02/09/2024 11:14:33 02/04/20 24 02/05/2024 LIPID PANEL HDL cholesterol 87 mg/dL >39 normal Not Available [facility] ([facility]) [address] [place], [address], 02/09/2024 11:14:33 02/04/20 24 02/05/2024 LIPID PANEL VLDL cholesterol deborah 13 mg/dL 5-40 Not Available [facility] ([facility]) [address] [place], [address], 02/09/2024 11:14:33 02/04/20 24 02/05/2024 LIPID PANEL LDL chol calc ([facility]) 154 mg/dL 0-99 above high normal Not Available [facility] ([facility]) [address] [place], [address], 02/09/2024 11:14:33 02/04/20 24 02/05/2024 LIPID PANEL LDL calc comment: WOOL PULLER Not Available [facility] ([facility]) [address] [place], [address], 02/09/2024 11:14:33 02/04/20 24 02/09/2024 VITAM IN B6, PLASM A vitamin B6 3.0 ug/L 3.4-65 .2 below low normal Defic iency : <3.4 Feli nal: 3.4 - 5.1 Adequ ate: >5.1 Not Available [facility] ([facility]) [address] [facility], [place], [address], 02/09/2024 11:14:35 07/12/19 24 07/12/2023 leticia scrn mammo w/CAD bilat [facility] [address] [place] [address] Phone: Fax: Name: JAYLENE FLORES Exam Date: : [birth year] Age 62 years Gender : F Access ion: [id number] Physic zuleyma: DENEEN MEDINA Facili ty: [facility] Facili ty HSV: Outpat ient Exam: LETICIA SCRN MAMMO W/CAD BILAT MAMMOG CINTHYA SCREEN ING BILATE RAL HISTOR Y: Routin e screen ing exam COMPAR STEPHANIA: Februa ry 2022 TECHNI QUE: Standa rd digita l 2-D views with 3-D tomosy nthesi s DENSIT Y: There are scatte red areas of fibrog landul ar densit y FINDIN GS: Benign calcif icatio ns. Scatte red areas of focal asymme try are noted. No new suspic ious mass, suspic ious calcif icatio ns or lashonda ectura l distor tion is presen t. IMPRES LUCIANA: No mammog raphic eviden ce of malign karen BI-RAD S 2: Benign findin g RECOMM ENDATI ON: Annual mammog giovanni CAD was utiliz ed during interp retati on. The patien t will be sent a letter from the mammog giovanni depart ment with their mammog giovanni result s. Dictat ed By: Sangita Quintero ribed By: Sangita Shelley ribed On: 024 1:35 PM Electr onical ly signed by: Sangita Quintero 024 Thank you for referr JAYLENE Martines to [facility]. Legall y authen ticate d by CYNDIE BRADFORD 2023-0 07-11 13:35: 22 CC'ed Logic: Orderi ng Provid er: [facility]A BROTHERS CC Provid er: [facility]A BROTHERS Attend ing Provid er: HOA BROTHERS Admitt ing Provid er: HOA BROTHERS [facility] [address] [facility], [place], [address], 07/12/2023 20:47:19 02/08/20 24 02/08/2024 imagi ng inter preta tion No observ ation record ed. [address], [place], [address], 02/08/2024 17:00:22 03/28/20 24 03/27/2024 dexa bone densi ty AX [facility] [address] [place] [address] Phone: Fax: Name: JAYLENE FLORES Exam Date: 2023 : 9[birth year] Age 63 years Gender : F Access ion: [id number] Physic zuleyma: DENEEN MEDINA Facili ty: [facility] Facili ty HSV: Outpat ient Exam: DEXA BONE DENSIT Y AX EXAMIN ATION: DUAL X-RAY ABSORP TIOMET RY (DXA) FOR BONE MINERA L DENSIT Y. CLINIC AL INDICA TION: 63 years old, Female . Postme nopaus al. Screen ing for osteop orosis . TECHNI QUE: An axial (e.g., hips, spine) and/or append icular (e.g., radius ) exam was perfor med, as approp riate, using [employer] iDXA densit ometer . Images are obtain ed for bone minera l densit y measur ement and are not obtain ed for diagno stic purpos es. [id number] 2 COMPAR STEPHANIA: None. FINDIN GS: Scan qualit y: Good. LUMBAR SPINE (L1-L4 ): BMD (in g/cm*2 ): 1.092. T-scor e: -0.8. Z-scor e: 0.6. LEFT FEMORA L NECK: BMD (in g/cm*2 ): 0.790. T-scor e: -1.8. Z-scor e: -0.4. LEFT TOTAL HIP: BMD (in g/cm*2 ): 0.679. T-scor e: -2.6. Z-scor e: -1.6. RIGHT FEMORA L NECK: BMD (in g/cm*2 ): 0.882. T-scor e: -1.1. Z-scor e: 0.2. RIGHT TOTAL HIP: BMD (in g/cm*2 ): 0.810. T-scor e: -1.6. Z-scor e: -0.5. FRAX 10-YEA R PROBAB ILITY OF FRACTU RE: 10-yea r fractu re risk is perfor med using the [facility] FRAX calcul ator based on patien t-repo rted risk factor s. Major osteop orotic fractu re: 6.0%. Hip fractu re: 1.0%. IMPRES LUCIANA: Osteop orosis based on BMD. World Health Organi zation criter ia for BMD impres luciana classi fy patien ts as: - Normal (T-sco re at or above -1.0). - Osteop enia (T-sco re betwee n -1.0 and -2.5). - Osteop orosis (T-sco re at or below -2.5). Per the Bone Health and Osteop orosis Founda tion the FRAX tool is most useful in patien ts with low femora l neck bone minera l densit y (osteo penia) . FRAX is Legall y authen ticate d by ERNA DOSS 2023-03 11:10: 59 calcul ated per reques t. RECOMM ENDATI ONS: 1.All patien ts should optimi ze their calciu m and vitami n D intake . 2.Cons ider FDA-ap proved medica l therap ies in postme nopaus al women and men aged 50 years and older, based on the follow ing: - A hip or verteb ral (clini deborah or morpho metric ) fractu re. - T-scor e less than or equal to -2.5 at the femora l neck or spine after approp riate evalua tion to exclud e second ludwig causes . - Low bone densit y (T-sco re betwee n -1.0 and -2.5 at the femora l neck or spine) and a 10-yea r probab ility of a hip fractu re greate r than or equal to 3% or a 10-yea r probab ility of a major osteop orosis -relat ed fractu re greate r than or equal to 20% based on FRAX calcul ation. - Clinic zuleyma judgme nt and/or patien t prefer ences may indica te treatm ent for people with 10-yea r fractu re probab ilitie s above or below these levels . - Nevin alne ce on treatm ent can be found at the [facility] al Osteop orosis Founda tion's websit e boneso urce.o rg. 3.Alyssa ents with diagno sis of osteop orosis or at high risk for fractu re should have regula r bone minera l densit y tests. For patien ts eligib le for Medica re, routin e testin g is allowe d once every 2 years. The testin g freque ncy can be increa sed to one year for patien ts who have rapidl y progre ssing diseas e, those who are receiv ing or discon tinuin g medica l therap y to restor e bone mass or have additi onal risk factor s. Electr onical ly signed by:Sera Umanzor 03/2023 08:23 AM EST RP Workst ation: [id number] Dictat ed By: ROMARIO UMANZOR Transc ribed By: Transc ribed On: 2023 11:10 AM Electr onical ly signed by: ROMARIO UMANZOR 2023 Thank you for referr ing JAYLENE FLORES to [facility]. Legall y authen ticate d by ERNA DOSS 2023-03 11:10: 59 CC'ed Logic: Orderi ng Provid er: HOA BROTHERS CC Provid er: [facility]A BROTHERS Attend ing Provid er: HOA BROTHERS Referr ing Provid er: HOA BROTHERS Admitt ing Provid er: HOA BROTHERS [facility] [address] [facility], [place], [address], 03/31/2024 12:27:27 03/30/19 25 03/27/2024 DEXA No observ ation record ed. [facility] ([facility]) [address] [facility], [place], [address], 03/30/2024 09:02:12 Result Notes None recorded. Procedures Surgical History Date Name Laterality Status Provider Name and Address Organization Details Recorded Time 4 Most Recent Mammogram completed Yani [place]in[place] [facility] [place] [facility] [place] 11/17/2023 11:51:34 4 completed Quynh [place] [facility] [place] [facility] [place] 12/29/2023 09:09:46 2 incision of lymph node completed Yani [place]ckinley [place] [facility] [place] 11/17/2023 11:50:39 2 Other completed Flaquita [place] [facility] [place] [facility] [place] 03/24/2022 13:09:44 6 Date of Last Pap Smear completed Hilary Magdaleno [place] [facility] [place] [facility] [place] 07/28/2022 13:08:20 7 Abdominal Surgery completed Flaquita Goodrich [place] [facility] [place] [facility] [place] 03/24/2022 13:09:44 4 Other completed [facility]quita [place] [facility] [place] 03/24/2022 13:09:44 Imaging Results Imaging Date Name Status LastModified by Organization Details LastModified Time 07/12/2023 leticia scrn mammo w/CAD bilat completed [facility] [address] [facility], [place], [address], 07/12/2023 20:47:19 02/08/2024 imaging interpretation completed [address], [place], [address], 02/08/2024 17:00:22 03/27/2024 dexa bone density AX completed [facility] [address] [facility], [place], [address], 03/31/2024 12:27:27 03/27/2024 DEXA completed [facility] ([facility]) [address] [facility], [place], [address], 03/30/2024 09:02:12 Procedure Notes None recorded. Medical Equipment None Reported. Allergies Allergen ID Allergen Name Allergen Category Reaction Reaction Severity Criticality Documentation Date Start Date Code Code System Note Provider Name and Address Organization Details Recorded Time 45152 latex environme nt,medica tion itching severe Not available 03/24/2022 13016 91 RxNorm Flaquita Good[facility] & [place] 2 13:09:34 46119 Bactrim medicatio n other Not available Not available 04/29/2022 00774 9 RxNorm Deneen Medina MD [address] [place], [address] [place] [address] & [place] 3 14:51:08 Medications Name Sig Start Date Stop Date Status Note LastModified by Organization Details LastModified Time amoxicillin 500 mg capsule 04/29 completed Not Available Not Available Not Available doxycycline hyclate 100 mg capsule Take 1 capsule twice a day by oral route for 7 days. active Not Available Not Available No t Available clindamycin HCl 300 mg capsule Take 1 capsule every 8 hours by oral route as directed for 10 days. 04/29 completed Not Available Not Available Not Available pravastatin 40 mg tablet TAKE ONE TABLET BY MOUTH EVERY DAY 12/25 completed Not Available Not Available Not Available ciprofloxac in 500 mg/5 mL oral suspension 12/22 completed Not Available Not Available Not Available ondansetron HCl 4 mg tablet TAKE ONE TABLET BY MOUTH EVERY 6 HOURS NEEDED 12/22 completed Not Available Not Available Not Available prednisone 20 mg tablet 03/24 completed Not Available Not Available Not Available clindamycin HCl 150 mg capsule Take 1 capsule every 8 hours by oral route for 10 days. 12/22 completed Not Available Not Available Not Available ciprofloxac in 500 mg tablet TAKE 1 TABLET BY MOUTH TWICE DAILY 05/30 completed Not Available Not Available Not Available sulfamethox azole 800 mg-trimetho prim 160 mg tablet Take 1 tablet every 12 hours by oral route for 10 days. 04/29 completed Not Available Not Available Not Available hydrocodone 10 mg-acetamin ophen 325 mg tablet 12/22 completed Not Available Not Available Not Available tramadol 50 mg tablet TAKE 1-2 TABLETS BY MOUTH EVERY 6 HOURS NEEDED FOR PAIN. MAX 6 TABS PER DAY 03/24 completed Not Available Not Available Not Available amitriptyli ne 50 mg tablet TAKE ONE TABLET BY MOUTH EVERY DAY 2024 active Not Available Not Available Not Avai lable amoxicillin 500 mg tablet Take 1 tablet twice a day by oral route as directed for 10 days. 04/29 completed Not Available Not Available Not Available amitriptyli ne 25 mg tablet TAKE ONE TABLET BY MOUTH EVERY NIGHT AT BEDTIME 12/22 completed Not Available Not Available Not Available pravastatin 10 mg tablet Take 1 tablet every day by oral route for 90 days. 12/22 completed Not Available Not Available Not Available doxycycline monohydrate 100 mg capsule TAKE ONE CAPSULE BY MOUTH TWICE DAILY 05/30 completed Not Available Not Available Not Available levothyroxi ne 50 mcg tablet TAKE ONE TABLET BY MOUTH EVERY MORNING ON AN EMPTY stomach 2024 active Not Available Not Available Not Avai lable cephalexin 500 mg capsule TAKE 1 CAPSULE BY MOUTH EVERY 6 HOURS FOR 5 DAYS 03/24 completed Not Available Not Available Not Available oseltamivir 75 mg capsule 03/24 completed Not Available Not Available Not Available gabapentin 300 mg capsule TAKE 2 CAPSULE BY MOUTH AT BEDTIME NIGHT BEFORE SURGERY. THEN 2 CAPS EVERY 8 HOURS 03/24 completed Not Available Not Available Not Available gentamicin 0.1 % topical cream 12/25 completed Not Available Not Available Not Available hydroxyzine HCl 25 mg tablet TAKE 1 TABLET BY MOUTH EVERY 6 HOURS NEEDED FOR ITCHING OR NAUSEA FOR 7 DAYS 04/26 completed Not Available Not Available Not Available pravastatin 20 mg tablet TAKE 1 TABLET BY MOUTH DAILY 06/17 completed Not Available Not Available Not Available scopolamine 1 mg over [address] 4 HOURS PRIOR TO SURGERY OR AT BEDTIME NIGHT BEFORE SURGERY. LEAVE ON FOR 72 HOURS 03/24 completed Not Available Not Available Not Available methylpredn isolone 4 mg tablets in a dose pack TAKE BY MOUTH DIRECTED PER PACKAGE [employer] ONS FOR 6 DAYS 03/27 completed Not Available Not Available Not Available clotrimazol e 1 % topical cream 12/25 completed Not Available Not Available Not Available doxycycline hyclate 100 mg tablet TAKE ONE TABLET BY MOUTH TWICE DAILY 05/30 completed Not Available Not Available Not Available amoxicillin 875 mg-potassiu m clavulanate 125 mg tablet 03/24 completed Not Available Not Available Not Available ezetimibe 10 mg tablet TAKE ONE TABLET BY MOUTH EVERY DAY active Not Available Not Available No t Available bupropion HCl XL 150 mg 24 hr tablet, extended release TAKE ONE TABLET BY MOUTH EVERY DAY 2024 active Not Available Not Available Not Avai lable gabapentin 10 % cream in metered-dos e applicator 6% cream use PRN active Not Available Not Available No t Available Nuzyra 150 mg tablet TAKE 2 TABLETS BY MOUTH DAILY 12/22 completed Not Available Not Available Not Available ID NOW COVID-19 Test Kit TEST DIRECTED TODAY 03/24 completed Not Available Not Available Not Available BinaxNOW COVID-19 Ag Self Test kit TEST DIRECTED TODAY 05/30 completed Not Available Not Available Not Available Wegovy 0.25 mg/0.5 mL subcutaneou s pen injector Inject 0.25 mg every week by subcutane ous route for 28 days. 03/27 completed Not Available Not Available Not Available Vitals Date Recorded Body height Body mass index (BMI) Body weight Body temperature Oxygen saturation Oxygen saturation in Arterial blood by Pulse oximetry Heart rate Systolic blood pressure Diastolic blood pressure Provider Name and Address Organization Details Last Updated DateTime 3 170.18 cm 45.4 kg/m2 925096. 79 g 97.1 [degF] 99 % 99 % 64 /min 136 mm[Hg] 76 mm[Hg] [facility] [place] 3 10:23:43 Date Recorded Body height Body mass index (BMI) Body weight Body temperature Oxygen saturation Oxygen saturation in Arterial blood by Pulse oximetry Heart rate Systolic blood pressure Diastolic blood pressure Provider Name and Address Organization Details Last Updated DateTime 4 170.18 cm 44.2 kg/m2 797017. 05 g 97.1 [degF] 98 % 98 % 60 /min 124 mm[Hg] 78 mm[Hg] Quynh PAEZ [facility] [place] 4 09:32:35 Date Recorded Body height Body mass index (BMI) Body weight Body temperature Oxygen saturation Oxygen saturation in Arterial blood by Pulse oximetry Heart rate Systolic blood pressure Diastolic blood pressure Provider Name and Address Organization Details Last Updated DateTime 4 170.18 cm 46.4 kg/m2 930377. 34 g 97.8 [degF] 97 % 97 % 69 /min 134 mm[Hg] 88 mm[Hg] Quynh Mary PAEZ [facility] [place] 4 09:15:27 Date Recorded Body height Body mass index (BMI) Body weight Body temperature Oxygen saturation Oxygen saturation in Arterial blood by Pulse oximetry Heart rate Systolic blood pressure Diastolic blood pressure Provider Name and Address Organization Details Last Updated DateTime 4 170.18 cm 46.4 kg/m2 157256. 34 g 97.6 [degF] 99 % 99 % 84 /min 134 mm[Hg] 88 mm[Hg] Quynhfelix Zepedawood JEANNINE [facility] [place] 4 14:22:52 Social History Question Answer Notes LastModified by Organizat ion Details LastModified Time Tobacco Smoking Status Never Smoker JEANNINE Friend [facility] [place] 03/24/2022 13:19:44 Do You Have An Advance Directive? No Information not available 07/28/2022 What Is Your Level Of Alcohol Consumption? Moderate Information not available 07/28/2022 Are You Blind Or Do You Have Difficulty Seeing? No Information not available 07/28/2022 What Is Your Level Of Caffeine Consumption? Occasional [email or web address] Information not available 12/22/2022 What Was The Date Of Your Most Recent Tobacco Screening? 12/25/2022 [email or web address] Information not available 12/29/2023 Are You Passively Exposed To Smoke? No Information no t available 07/28/2022 Do You Feel Stressed (tense, Restless, Nervous, Or Anxious, Or Unable To Sleep At Night)? [id number] [email or web address] Information not available 12/29/2023 Do You Use Any Illicit Or Recreational Drugs? No [email or web address] Information not available 03/24/2022 Has Tobacco Cessation Counseling Been Provided? No [email or web address] Information not available 12/22/2022 Do You Or Have You Ever Used Any Other Forms Of Tobacco Or Nicotine? No [email or web address] Information not available 12/22/2022 Sex: Unknown Functional Status Question Answer Note LastModified by Organization D etails LastModified Time What is your exercise level? None Information not available 07/28/2022 Mental Status None recorded. Family History Relationship Description Onset Age of this Age Resolved Age Notes LastModified by Organization Details LastModified Time Mother Rheumatoid arthritis [email or web address] Not available 2023 11:57:00 Mother Heart disease [email or web address] Not available 2023 11:56:53 Mother Cerebrovascu lar accident [email or web address] Not available 11:57:06 Mother Depressive disorder [email or web address] Not available 02/28 14:10:38 Mother Osteoporosis [email or web address] Not avai lable 11/17/2023 11:57:19 Mother Disorder of thyroid gland pt. added direct ly (12/25) [email or web address] Not available 12/26/2023 16:36:17 Mother Autoimmune disease pt. added direct ly (12/25) [email or web address] Not available 12/26/2023 16:36:36 Mother Hypertensive disorder pt. added direct ly (12/25) [email or web address] Not available 12/26/2023 16:37:38 Mother Hearing loss pt. added direct ly (12/25) [email or web address] Not available 12/26/2023 16:38:40 Sister Arthritis [email or web address] Not avail able 03/27/2024 14:10:38 Sister Disorder of thyroid gland pt. added direct ly (12/25) [email or web address] Not available 12/26/2023 16:36:17 Paternal Aunt Malignant tumor of breast [email or web address] Not available 02/28 14:10:38 Father Heart disease [email or web address] Not available 2023 11:57:31 Father Mental disorder [email or web address] Not available 02/28 14:10:38 Father Cerebrovascu lar accident [email or web address] Not available 11:57:59 Father Malignant melanoma [email or web address] Not available 02/28 14:10:38 Father Alzheimer's disease Not available 02/28 14:10:38 Father Malignant tumor of prostate [email or web address] Not available 02/28 14:10:38 Father Hypercholest erolemia pt. added direct ly (12/25) [email or web address] Not available 12/26/2023 16:37:24 Father Headache pt. added direct ly (12/25) [email or web address] Not available 12/26/2023 16:38:17 Father Hearing loss pt. added direct ly (12/25) [email or web address] Not available 12/26/2023 16:38:40 Medical History Condition Response Other Y Ear or Hearing Problems Y Thyroid Problems Y Hypothyroidism Y Anxiety Disorder Y Autoimmune disease Y Obesity Y Arthritis Y High Cholesterol Y Gynecological History Statement/Question Response Abnormal Pap N 05/12/2023 Date of LMP 06/27/2009 Sexually Active? Y Menses Monthly N Date of Last Pap Smear 03/29/2015 Current Control Method None Most Recent Mammogram 07/12/2023 Obstetrics History GPAL:G 0 P 0 0 0 0 Immunizations Vaccine Type Date Status Note Provider Nam e and Address Organization Details Recorded Time Influenza, MDCK, quadrivalent, PF 03/08/2022 completed Not Available [facility] 3 21:18:43 COVID-19, mRNA, LNP-S, PF, 100 mcg/0.5mL dose or 50 mcg/0.25mL dose 04/18/2021 completed Not Available [facility] 3 21:18:43 COVID-19 vaccine, vector-nr, rS-Ad26, PF, 0.5 mL 06/28/2020 completed Not Available [facility] 3 21:18:43 Influenza, split virus, quadrivalent, PF 01/18/2020 completed Not Available [facility] 3 21:18:43 COVID-19, mRNA, LNP-S, bivalent, PF, 50 mcg/0.5 mL or 25mcg/0.25 mL dose 04/19/2022 completed Lori Jameson null, [place] - [facility] [place] [facility] [place] 12/08/2022 11:51:09 Influenza, MDCK, quadrivalent, PF 12/21/2022 completed Quynh [place] null, [place] [facility] [place] [facility] [place] 05/31/2023 09:32:58 COVID-19, mRNA, LNP-S, PF, 50 mcg/0.5 mL 01/11/2023 completed Quynh [place] null, [place] [facility] [place] 05/31/2023 09:32:58 Influenza, split virus, trivalent, PF 12/29/2023 completed Deneen Medina MD [address] [place], [address], [place] [facility] [place] 12/29/2023 17:08:23 COVID-19, mRNA, LNP-S, PF, 50 mcg/0.5 mL 01/17/2024 completed Quynh [place] [facility], [place] - [facility] [place] & [place] 03/27/2024 14:16:04 Past Encounters Encounter ID Performer Location Encounter Start Date Encounter Closed Date Diagnosis/Indication Diagnosis SNOMED-CT Code Diagnosis ICD10 Code Diagnosis Note [id number] Deneen Medina MD [facility] [address] [place] [address] 03/24/2022 13:02:20 03/24/2022 13:56:16 Delayed healing of surgical wound 076504829 T81.89XA obtain new wound cx, pt will take sample collection to wound care clinic to collect during packing change and bring back for us to send off. consider abx pending that result. pt also wishes to see infectious disease at this time. [id number] Deneen Medina MD [address] [place] [address] 04/29/2022 14:18:22 04/29/2022 15:29:36 Adult health examination 682288045 Z00.00 Diabetes m ellitus screening 623866608 Z13.1 Screening for malignant neoplasm of breast 809131548 Z12.39 Screening for malignant neoplasm of colon 272917070 Z12.11 Hyperlipidemia 12118110 E78.5 Acquired hypothyroidism 715215322 E03.9 History of bariatric surgical procedure 906990567 Z98.84 Vitamin D deficiency 347 48030 E55.9 Chronic pain 58637296 G8 9.29 [id number] Marnie Baltazar MD [facility] General Surgery [address] [place] [address],[address] [place] [address] 07/28/2022 12:26:13 07/28/2022 13:59:59 Open wound of lower leg 538800570 S81.801S S81.809S nonhealing bilateral 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 there is evidence of ongoing fluid collection s on recent MRI. I did discuss with the patient that there is no current evidence of uncontroll ed infection. She has scant drainage, no evidence of cellulitis and is being maintained on antibiotic s per Infectious Disease. She does have a scheduled follow-up with her plastic surgeon in [place] later this month. Given the highly specialize d nature of her prior procedure, I believe that follow-up with the surgeon of record is the best option. These wounds are complex. Should drainage procedures be required, the risk of causing worsening of the clinical situation is possible. Should she require ongoing local care, plastic surgery referral would be the most appropriat e option. [id number] Deneen Medina MD [address] [place] [address] 12/22/2022 09:51:51 12/22/2022 11:19:36 Acquired hypothyroidism 242084086 E03.9 Hyperlipidemia 08997001 E78.5 Vitamin D deficiency 347 30782 E55.9 Cobalamin deficiency 190 211923 E53.8 Vitamin B6 deficiency 38 7452115 E53.1 Impairment of balance 38 2870138 R26.89 start PT [id number] Deneen Medina MD [address] [place] [address] 05/31/2023 09:04:39 05/31/2023 10:46:36 Adult health examination 411623379 Z00.00 Screening for malignant neoplasm of breast 146991157 Z12.39 pt will call and schedule Screening for malignant neoplasm of colon 390231450 Z12.11 has cologuard at home to use [facility] risk of osteoporosis 125937967 Z91.89 Hypothyroidism 05687772 E03.9 Vitamin D deficiency 347 70385 E55.9 Vitamin B1 2 deficiency (non anemic) 37778321 E53.8 Hyperlipidemia 15159369 E78.5 Diabetes m ellitus screening 838974536 Z13.1 Vitamin A deficiency 720 22350 E50.9 Vitamin B6 deficiency 38 4540175 E53.1 [id number] [facility]eneen [facility] MD [facility] [address] [facility]- [place] [address] 12/29/2023 08:52:11 12/29/2023 10:58:17 Morbid obesity 539949016 E66.01 Vitamin B6 deficiency 38 5876857 E53.1 Hyperlipidemia 78233388 E78.5 Acquired hypothyroidism 859115962 E03.9 Chronic pain 50445974 G8 9.29 Mild depression 29263128 3 F32.A Administra tion of influenza vaccine 20206723 Z23 [id number] Deneen Medina MD [facility] [address] [facility] [address]- [place] [address] 02/04/2024 10:58:18 02/04/2024 11:29:20 Hyperlipidemia 77090003 E78.5 [id number] Deneen Medina MD [facility] [address] [place] [address] 03/27/2024 14:10:23 03/27/2024 15:11:26 Cellulitis of lower limb 991517856 L03.119 Lipomatosi s of subcutaneous tissue 981544221 E88.2 Health Concerns Section Related Observation LastModified by Organization Detai ls LastModified Time None Recorded Concern Status LastModified by Organization Details LastModified Time None Recorded Advance Directives Directive N: Payers Encounter Date Sequence Insurance Name Policy Number Policy Ames Covered Member ID Ames Member ID Guarantor Name 12/22/2022 1 [place] [id number] Jaylene K Flores [id number] Jaylene K Flores 05/31/2023 1 [place] [id number] Jaylene K Flores [id number] Jaylene K Flores 12/29/2023 1 [place] [id number] Jaylene K Flores [id number] Jaylene K Flores 02/04/2024 1 [place] [id number] Jaylene K Flores [id number] Jaylene K Flores 03/27/2024 1 [place] [id number] Jaylene K Flores [id number] Jaylene K Flores Notes Date Note Type Note Provider Name and Address Organization Details Recorded Time 12/22/2022 text/html She is here for f/u She had seen ID for a non healing surgical wound. She had taken several different antibiotics. She had also followed up with the surgical center in [place]. She has had more drainage recently but without odor. Her MLD therapist was concerned for possible recurrence of infection She has hyperlipidemia and is on pravastatin 20mg and is due for labs to f/u on this. SHe has low vit D, b6 and b12. She is due for labs to f/u on this. She is due for labs to f/u on her thyroid as well. She feels that she is struggling with her balance due to her lipidema and would like to work on this with PT. MD [address], [place], [address], [facility] & [place] 12/22/2022 12:55:08 05/31/2023 text/html Patient is here for yearly check up and follow up.Last dental visit: long overdue and plans to scheduleLast eye exam: 2022 Tdap vaccine: allergicFlu vaccine: Novovid vaccine: Dec 2022 most recent doseShingles vaccine: currently duePNA vaccine: not yet due mammogram: Apr 2022, plans to scheduleColon cancer screening: She notes that she had cologuard ordered but had persistent diarrhea due to chronic antibiotic useDexa: she had a recent fracture while going to the bathroom in the middle of the night in August of 2022. She required surgery to correct this.Pap smear: 2017, normal at the time with Dr. Rodriguez Pt plans to schedule this HLP screening: see belowDM Screening: due for screeningHTN screening: no hx of HTN, WNL here today Diet: feels that she has been fairly consistent with low carb dietExercise: working with PT and walking around her home. Safety: pt wears seat belt, has smoke detectors in home, feels safe at home. She has been following with ID for her post lipo wound that had some complications. HLP: on statin and due for labs to f/u on this. Plans on restarting coQ10.Hypothyroidism: due for labs to f/u on this. She s currently on levothyroxine 50mcg.Vit D def: on supplementation and due for follow up labB12 def: due for labs to f/u on this.She is following with PT for vestibular therapy.She has been on amitriptyline for nerve pain as well as mood. MD [address], [place], [address], [facility] [place] 05/31/2023 12:59:30 12/29/2023 text/html SHe notes that h er significant other had a stroke and she had also lost her sister. THis has impacted her emotions and she feels like she is not herself. She finds she is easily irritated and frustrated and this has impacted motivation. She also feels sad. She has taken wellbutrin in the past after her divorce and did tolerate the med well and felt she had benefit. She has hypothyroidism an has been off her med for a while as she thinks she lost her rx. She had considered calling for a refill but forgot. She was due for labs today. SHe has HLP and had stopped statin as she felt it was making her dizzy. She did not have muscle pain, dark urine that she is aware of. SHe is also due for f/u lipid panel. She has b6 def and is due for labs to check on this. She would like to see about trying options of GLP for weight loss as well as some recent studies that have noticed possible decrease in inflammation in lipidema. Deneen Medina MD [address], [place], [address], [facility] [place] 12/29/2023 17:12:34 03/27/2024 text/html 63 yo F pt with hx of lipidema present with some localized swelling and redness of the right lower leg medially, somewhat adjacent to a prior incision for lipsuction therapy. She has had a complicated past course of infection issues after that procedure. She denies fever, redness spreading up the leg or drainage. She was concerned about the start of potential infection again upon noticing this. She does use compression pumps as well as routinely sees a specialty therapist for treatment but was unable to have her most recent treatment as the therapist was out with illness.She also notes that her diet has been off track with the holidays leading to more inflammation which has contributed to joint pain and fatigue that is increased from her baseline. MD [address], [place], [address], [facility] 03/27/2024 15:17:00 OBGyn Episode No OBEpisode recorded.
--- NOTE | 2024-07-21 13:26 | XR_ITS ---
FINAL REPORT CLINICAL HISTORY: fall, first through third toes injury FINDINGS: RIGHT FOOT 3 views of the right foot were obtained. There is no acute fracture or dislocation. Osteopenia is noted. There is a moderate plantar spur. There is an os trigonum measuring 10 mm. Visualized joint spaces are normally aligned. Soft tissues are unremarkable. IMPRESSION: No acute bony abnormality. Reviewed, Interpreted and Dictated by Marco James MD Transcribed by Rosalva Prado Authenticated and [facility]
--- NOTE | 2024-07-21 13:26 | XR_ITS ---
FINAL REPORT CLINICAL HISTORY: fall, prox tib pain FINDINGS: RIGHT TIBIA/FIBULA 2 views were obtained. There is no acute fracture or dislocation. The joint spaces are intact. There is no soft tissue abnormality. IMPRESSION: No acute bony abnormality. Reviewed, Interpreted and Dictated by Marco James MD Transcribed by Rosalva Prado Authenticated and [facility]
--- NOTE | 2024-07-21 13:26 | XR_ITS ---
FINAL REPORT CLINICAL HISTORY: Fall, anterior pain COMPARISON: None FINDINGS: LEFT KNEE Three views demonstrate no acute fracture or dislocation. There is mild narrowing of the lateral compartment joint space. There are moderate osteophytes along the undersurface of the patella. No acute soft tissue abnormality is seen. IMPRESSION: Degenerative changes without acute bony abnormality. Reviewed, Interpreted and Dictated by Marco James MD Transcribed by Carisa Kelley Authenticated and . [facility]
[2024-07-21 13:30] VITALS: BP 133/80; PULSE 56; O2SAT 99
--- NOTE | 2024-07-21 13:43 | XR_ITS ---
FINAL REPORT CLINICAL HISTORY: fall on knees, anterior pain FINDINGS: LEFT TIBIA/FIBULA 2 views were obtained. There is no acute fracture or dislocation. The joint spaces are intact. There is no soft tissue abnormality. IMPRESSION: No acute fracture Reviewed, Interpreted and Dictated by Marco James MD Transcribed by Rosalva Prado Authenticated and [facility]
--- NOTE | 2024-07-21 13:43 | XR_ITS ---
FINAL REPORT CLINICAL HISTORY: left 1-3 digit pain FINDINGS: LEFT FOOT Three views of the left foot demonstrate no acute fracture or dislocation. Osteopenia is noted. There is a small plantar spur. The visualized joint spaces are normally aligned. The soft tissues are unremarkable. IMPRESSION: No acute bony abnormality. Reviewed, Interpreted and Dictated by Marco James MD Transcribed by Rosalva Prado Authenticated and [facility]
--- NOTE | 2024-07-21 13:43 | XR_ITS ---
FINAL REPORT CLINICAL HISTORY: Fall on knees, anterior pain COMPARISON: 02/08/2024 FINDINGS: RIGHT KNEE Three views demonstrate no acute fracture or dislocation. There is moderate narrowing of the medial compartment joint space. There are osteophytes along the undersurface of the patella. No acute soft tissue abnormality is seen. IMPRESSION: No significant change from the prior exam allowing for differences in projection. Reviewed, Interpreted and Dictated by Marco James MD Transcribed by Carisa Kelley Authenticated and [facility]
[2024-07-21 14:00] VITALS: BP 132/104; PULSE 40; O2SAT 76
--- NOTE | 2024-07-21 14:40 | ED_ITS ---
Discharge Plan Disposition Patient Disposition: Home, Self-Care Prescriptions Prescriptions: No Action amitriptyline 25 mg tablet 25 mg PO levothyroxine 50 mcg tablet 50 mcg PO pravastatin 10 mg tablet 10 mg PO DAILY methylprednisolone [Medrol (Elvin)] 4 mg tablets,dose pack See Rx Instructions PO PER PKG DIR Qty: 21 0RF Rx Instructions: PO PER PKG DIR Referrals Follow up/Referrals: Carmen Medina MD [Primary Care Provider] - See instructions Activity Restrictions/Add. Instructions Additional Instructions/Restrictions: Follow-up with your family doctor as needed for this visit to the emergency department. Take Tylenol 1000 mg every 6 hours (4 times daily) and ibuprofen 400 mg every 6 hours (4 times daily) as needed with food and water to prevent GI upset and kidney damage. Clinical Impressions Clinical Impression: Acute bilateral knee pain, Acute pain of left foot Print Language Print Language: Malay Discharge ED Provider: Josue Johnson General Adult HPI General Chief complaint: Fall Stated complaint: AO 07/21/24 1230, fell, inj left foot and knee Time Seen by Provider: 07/21/24 12:48 Mode of Arrival: Wheelchair Source of Information: Patient Description of Symptoms (Recalled from ER Triage Doc. by RN): pt was being seen for therapy and her left foot dragged and made her fall forward landing on left knee and ankle, pt has ambulation difficulties due to lipidemia and lymphedema. History of Present Illness HPI narrative: Please note that above description of symptoms, in this electronic medical record under categorization of recalled from ER triage doctor by RN are reflective of an initial nursing assessment, however, is not reflective of my full history and physical exam that was personally taken and clarified. Consequentially, this preceding description of symptoms, which may include the patient's categorized chief complaint in the EMR, do not reflect my personal clinical impression, and the ultimate description of history of present illness and patient stated complaints should be deferred to this section of the note. Unless stated otherwise or congruent with this section of the note, additional signs, symptoms, or incongruence should be interpreted as inaccurate with my clinical impression. Related Data Home Medications ?Medication ?Instructions ?Recorded ?Confirmed amitriptyline 25 mg tablet 25 mg PO 04/16/22 02/08/24 levothyroxine 50 mcg tablet 50 mcg PO 04/16/22 02/08/24 pravastatin 10 mg tablet 10 mg PO DAILY 04/16/22 02/08/24 Previous Rx's ?Medication ?Instructions ?Recorded methylprednisolone 4 mg tablets in See Rx Instructions PO PER PKG DIR 02/08/24 a dose pack (Medrol (Elvin)) #21 tabs Allergies Allergy/AdvReac Type Severity Reaction Status Date / Time latex (LATEX) Allergy Unknown Verified 02/08/24 10:56 [facility] Disclaimer: The information contained in this section may have been updated after the patient was seen, as this information can be updated by other users. Surgical History History of surgery on lower extremity History of laparoscopic cholecystectomy History of abdominoplasty Social History Smoking Status: Never smoker alcohol intake: current substance use type: denies use current occupational status: retired Travel in the last 8 weeks: None Have you lived/traveled outside US in past 30 days?: No Contact w/someone who lives/traveled outside US past 30 days?: No Exposure to someone with infectious disease in past 14 days?: No Do you have a fever (greater than 100.4 F or 38 C)?: No Have you tested positive for COVID-19: No Exposed to someone with COVID-19 in past 14 days?: No Do you have a sore throat?: No Do you have a cough?: No Do you have any weakness?: No Do you have any diarrhea?: No Are you experiencing any unusual bleeding?: No Do you have any muscle aches/pain?: No Do you have any abdominal pain?: No Are you experiencing loss of taste or smell?: No Other Medical History Have you received the Pneumonia Vaccine: Yes ROS Obtained: Yes All systems reviewed & no additional complaints except as documented Physical Exam General General appearance: alert and obese Head Head exam: atraumatic and normocephalic Eye Eye exam: Present normal appearance, PERRL and EOMI Neck Neck exam: Present normal inspection, full ROM and trachea midline Respiratory Respiratory exam: Absent respiratory distress, wheezes, stridor, accessory muscle use or prolonged expiratory phase Cardiovascular Cardiovascular exam: Present other (Pulses equal symmetric in upper and lower extremities) Abdominal Exam Abdominal exam: Present soft; Absent distention, tenderness or pulsatile mass Extremities Exam Extremities exam: Present edema Neurological Exam Neurological exam: Present alert, oriented X3 and CN II-XII intact; Absent motor sensory deficit Skin Skin exam: Present warm and dry; Absent diaphoresis or erythema Medical Decision Making Medical Records Medical records reviewed: Yes I reviewed the patient's medical records. Screening: Per USPSTF and CDC recommendations, given the prevalence of disease in our region, it is our hospital?s policy to screen for HIV and viral Hepatitis for all patients aged 18 and over and those with ongoing risk factors. Chidi Inquiry Pt receiving controlled substance: No Chidi was queried for this patient: No Vital Signs: 07/21/24 12:52 07/21/24 13:00 07/21/24 13:30 Temperature 98.2 F Temperature Source Oral Pulse Rate 58 L 56 L Pulse Rate [Left Brachial] 65 Respiratory Rate 20 Blood Pressure 134/71 133/80 Blood Pressure [Right Arm] 155/79 H Blood Pressure Mean [Right Arm] 104 Blood Pressure Source Blood Pressure Position 02 Sat by Pulse Oximetry 99 99 99 Oxygen Delivery Method Room Air 07/21/24 14:00 07/21/24 15:20 Temperature 98.0 F Temperature Source Oral Pulse Rate 40 L 60 Pulse Rate [Left Brachial] Respiratory Rate 18 Blood Pressure 132/104 H 147/55 H Blood Pressure [Right Arm] Blood Pressure Mean [Right Arm] Blood Pressure Source Automatic Cuff Blood Pressure Position Sitting 02 Sat by Pulse Oximetry 76 L Oxygen Delivery Method Room Air Orders (Tests/Meds): ORDERS Category Date Time Status Fibula/tibia XR left 2 views [XR tibia fibula LT 2V] Exams 07/21/24 13:43 Completed Stat Fibula/tibia XR right 2 views [XR tibia fibula RT 2V] Exams 07/21/24 13:26 Completed Stat Foot XR left minimum 3 views [XR foot LT min 3V] Stat Exams 07/21/24 13:43 Completed Knee XR left 3 views [XR knee LT 3V] Stat Exams 07/21/24 13:26 Completed Knee XR right 3 views [XR knee RT 3V] Stat Exams 07/21/24 13:43 Completed XR foot RT min 3V Stat Exams 07/21/24 13:26 Completed Medical Decision Narrative: 63-year-old female 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 She states she was walking just prior to arrival, tripped, fell, landed on her bilateral knees and is having left foot pain as well. Came in for further evaluation. Has not taken anything for the pain. It is mild and very tolerable when sitting in chair, made worse by ambulating. History obtained the patient. On arrival, very clinically well-appearing, largely unremarkable physical exam. She has tenderness bilateral knees anteriorly, but structurally intact and neurovascularly intact, range of motion is also intact. She does have swelling bilateral lower extremities due to known edema. She does have bruising about the left 2nd and 3rd toes. Differential includes sprain, strain, benign MSK injury, fracture, dislocation, among others. X-rays obtained. On independent interpretation, no acute bony abnormality of the imaged lower extremities. Because patient at baseline without signs or symptoms of clinical decompensation, deemed appropriate for discharge. Results were relayed to patient who voiced understanding and were agreeable to outpati ent management and follow up. I discussed my clinical impression with patient and answered all questions. At this time, the evidence for any other entities in the differential is insufficient to warrant any further testing or ED observation. This was explained as well. Advisory was given that persistent or worsening symptoms require further evaluation. I confirmed the understanding of this discussion. [facility] Att[facility] disclaimer Much of this encounter note is an electronic signals collector/analyst spoken language to printed text. Electronic signals collector/analyst of the spoken language may permit errors. Although I have reviewed the note, some errors may still exist. Critical Care Critical Care Time Critical Care Time: No
[2024-07-21 15:20] VITALS: BP 147/55; PULSE 60; RESP 18; TEMP 36.7; O2SAT 100
--- NOTE | 2024-07-21 15:20 | PC.NURSE ---
DR GREWAL AT BEDSIDE TO UPDATE PT ON DISCHARGE
== END 2024-07-21 15:25 | disposition home or self-care (01) ==
PROVIDERS: Emergency Provider Emergency Medicine; PCP Family Medicine
DX: M79.672 Pain in left foot (principal); M25.561 Pain in right knee; M25.562 Pain in left knee; W19.XXXA Unspecified fall, initial encounter
CPT/HCPCS: 73562; 73590; 73630; 99284

== ENCOUNTER 2024-07-21 13:00 | Outpatient (RCR) | payer BC, SELFPAY | END 2024-07-21 23:59 | disposition home or self-care (01) | LOC: PT 13:00 | PROVIDERS: Visit Provider Family Medicine | DX: T81.40XA Infection following a procedure, unspecified, initial encounter (principal) | CPT/HCPCS: 97140; 97164 ==

== ENCOUNTER 2024-08-18 13:00 | Outpatient (RCR) | payer BC, SELFPAY | END 2024-08-18 23:59 | disposition home or self-care (01) | LOC: PT 13:00 | PROVIDERS: Visit Provider Family Medicine | DX: T81.40XD Infection following a procedure, unspecified, subsequent encounter (principal) | CPT/HCPCS: 97140; 97164 ==

== ENCOUNTER 2024-09-22 14:00 | Outpatient (RCR) | payer BC, SELFPAY | END 2024-09-22 23:59 | disposition home or self-care (01) | LOC: PT 14:00 | PROVIDERS: Visit Provider Family Medicine | DX: T81.40XD Infection following a procedure, unspecified, subsequent encounter (principal) | CPT/HCPCS: 97140; 97164 ==

== ENCOUNTER 2024-10-20 13:00 | Outpatient (RCR) | payer BC, SELFPAY | END 2024-10-20 23:59 | disposition home or self-care (01) | LOC: PT 13:00 | PROVIDERS: Visit Provider Family Medicine | DX: T81.40XD Infection following a procedure, unspecified, subsequent encounter (principal) | CPT/HCPCS: 97140 ==

== ENCOUNTER 2024-11-24 13:00 | Outpatient (RCR) | payer BC, SELFPAY | END 2024-11-24 23:59 | disposition home or self-care (01) | LOC: PT 13:00 | PROVIDERS: Visit Provider Family Medicine | DX: T81.40XD Infection following a procedure, unspecified, subsequent encounter (principal) | CPT/HCPCS: 97140; 97164 ==

== ENCOUNTER 2024-12-22 13:00 | Outpatient (RCR) | payer BC, SELFPAY | END 2024-12-22 23:59 | disposition home or self-care (01) | LOC: PT 13:00 | PROVIDERS: Visit Provider Family Medicine | DX: T81.40XD Infection following a procedure, unspecified, subsequent encounter (principal) | CPT/HCPCS: 97140 ==

== ENCOUNTER 2025-01-26 13:00 | Outpatient (RCR) | payer BC, SELFPAY | END 2025-01-26 23:59 | disposition home or self-care (01) | LOC: PT 13:00 | PROVIDERS: Visit Provider Family Medicine | DX: T81.40XD Infection following a procedure, unspecified, subsequent encounter (principal) | CPT/HCPCS: 97140 ==

== ENCOUNTER 2025-02-19 15:13 | Outpatient (CLI) | payer BC, SELFPAY ==
--- OUTSIDE RECORDS SUMMARY | 2025-02-20 08:27 | XMS_ITS | Clinical Summary ---
Author Organization [facility] Address [address] [place] [address] Phone Care Team Providers Care Trust Operations Assistant Name Role Phone Nickie DE LOS SANTOS, Justice Salcedo [ ] Conditions or Problems Problem Name Problem Code Onset Date Status Entry Date Provider Comment Standard Description Annotate Abscess, gluteal region L02.31 (ICD-10-CM ) 06/12 Active 06/12 Celeste Noah Cutaneous abscess of buttock Cellulitis, gluteal region L03.317 (ICD-10-CM ) 06/12 Active 06/12 Celeste Noah Cellulitis of buttock Lymphedema, left leg 423030410 (SNOMED CT) 06/11 Active 06/11 Justice Fu MD Lymphedema of lower extremity Group B streptococcus infection 539602857 (SNOMED CT) 06/05 Active 06/05 Celeste Noah Streptococcus agalactiae infection Cellulitis, toe, right 65856126 (SNOMED CT) 06/05 Active 06/05 Celeste Noah Cellulitis of toe Acute osteomyelitis, right foot/toe M86.171 (ICD-10-CM ) 06/05 Active 06/05 Celeste Noah Other acute osteomyelitis, right ankle and foot Cellulitis, RLE 076593230 (SNOMED CT) 06/05 Active 06/05 Celeste Noah Cellulitis of foot MRSA infection 877869353 (SNOMED CT) 06/05 Active 06/05 Celeste Noah Methicillin resistant Staphylococcus aureus infection Medications Medication Instructions Start Date Stop Date Generic Name ND Provider DOXYCYCLINE HYCLATE 100 MG CAPS 1 capsule by mouth twice a day doxycycline hyclate 28371818275 Justice Fu MD DOXYCYCLINE HYCLATE 50 MG CAPS strength unknown has three doses left doxycycline hyclate 14230126736 Loy Centeno GABAPENTIN 300 MG/6ML SOLN once a day puts a little dab on each foot before bed. gabapentin 55487642461 Loy Centeno CLOTRIMAZOLE ANTI-FUNGAL 1 % CREA Apply 1 as directed to affected area twice a day clotrimazole 93251231736 Justice Fu MD PRAVASTATIN SODIUM 40 MG TABS once a day 2 tabs a day pravastatin 20441790792 Elenita Barbosa GENTAMICIN SULFATE 0.1 % CREA Apply 1 a small amount to affected area once a day gentamicin 95159834381 Justice Fu MD CIPRO 500 MG TABS Take 1 tablet by mouth twice a day ciprofloxacin hcl 87249817498 Justice Fu MD CIPRO 500 MG TABS Take 1 tablet by mouth twice a day ciprofloxacin hcl 26476594723 Justice Fu MD CIPROFLOXACIN HCL 500 MG TABS Take 1 tablet by mouth twice a day ciprofloxacin hcl 69745107700 Justice Fu MD NUZYRA 150 MG TABS Take 2 tablet by mouth once a day omadacycline 35773305085 Justice Fu MD vitamin Z39-tjigd acid unspecified unspecified vitamin k54-cepi c acid Kateryna Calina VITAMIN D3 10 MCG (400 UNIT) TABS cholecalciferol (vitamin d3) 39201137250 Kateryna Yayo MUCINEX 600 MG [id number] guaifenesin 01371891558 Kateryna Calina zinc amino acid chelate unspecified unspecified zinc amino acid chelate 45594387447 Kateryna Calina CHELATED MAGNESIUM 100 MG TABS magnesium amino acid chelate 61895993416 Kateryna Callakshmi PRAVASTATIN SODIUM 10 MG TABS once a day 2 tabs a day pravastatin 21225916629 Kateryna Callakshmi AMITRIPTYLINE HCL 25 MG TABS at bedtime amitriptyline 09811920853 Tracy Antonio HYDROXYZINE HCL 25 MG TABS every six hours as needed hydroxyzine hcl 51435430072 Tracy Antonio LEVOTHYROXINE SODIUM 50 MCG CAPS every morning levothyroxine 15312796844 Tracy Antonio PRAVASTATIN SODIUM 10 MG TABS once a day pravastatin 64507661591 Tracy Antonio Medications Administered No information available. Allergies, Adverse Reactions, Alerts Allergy Name Reaction Description Start Date Severity Status Provider CAREMATES LATEX-PF GLOVE LARGE itching Moderate No Longer Active Kateryna Calina LATEX GLOVES Moderate Active Kateryna Calina CAREMATES LATEX-PF GLOVE LARGE itching Moderate No Longer Active Tracy Antonio BACTRIM not specified Moderate Active Tracy Antonio Results Date Name Value Unit Range Flag Description Office Visit: 6 DIET SPACE PHYSICIST Yes - Overweight Dietary management education, guidance, and counseling (procedure) Lab Report: WOUND CULTURE ZZ-GE-unk Few (2+) Gram positive cocci in pairs GE use only - fo r LinkLogic import when terms are not otherwise specified Office Visit: Office Visit: 8 ORALTOBACUSE Never Tobacco smoking status SMOK STATUS Never smoker Toba account support specialist smoking status MEDS REVIEW Done Documenta tion of current medications (procedure) Plan of Care Type Date Detail Pending order Wound Culture an d Sensitivity w/Gram Stain Pending order Wound Culture an d Sensitivity w/Gram Stain Pending order Unna Boot Pending order Wound Culture an d Sensitivity w/Gram Stain Procedures Code Procedure Name Date Entry Date CPT-74464 Wound Culture and Sensitivity w/Gram Stai n CPT-61030 Wound Culture and Sensitivity w/Gram Stai n CPT-76472 Unna Boot CPT-05013 Wound Culture and Sensitivity w/Gram Stai n Vital Signs Date Name Value Unit Description BMI (Body Mass Index) 44.63 kg/m2 Bod y Mass Index (Ratio) Body Temperature 96.9 [degF] temperat ure E&M BP Diastolic 80 mm[Hg] blood pressu re, diastolic BP Systolic 120 mm[Hg] blood pressur e, systolic Heart Rate 64 /min pulse rate Height 67 [in_us] height E&M Respiratory Rate 16 /min respirat ory rate E&M Weight Measured 285 [lb_av] weight E& M Weight Measured 285 [lb_av] weight E& M Immunizations No information available. Advance Directives Directive Description Start Date NONE AT THIS TIME
--- OUTSIDE RECORDS SUMMARY | 2025-02-20 08:28 | XMS_ITS | Clinical Summary ---
Author Organization [facility] Address [address] [place] [address] Care Team Providers Care Count Room Clerk Name Role Phone Provider, No Known Primary Care Provider [phone] Social History Tobacco Use Types Packs/Day Years Used Date Smoking Tobacco: Never Assessed Abuse Screen Answer Date Recorded Unsafe at Home or Work/School Not on file Feels Threatened by Someone? Not on file 11/2022 Does Anyone Keep You from Co ntacting Others or Doint Things Outside the Home? Not on file 01/04/2023 Physical Sign of Abuse Present Not on file 1 Housing Stability Answer Date Recorded Current Living Arrangements Not on file 11/2022 Potentially Unsafe Housing Conditions Not on lian e 01/04/2023 Family and Community Support Answer Adrien e Recorded Help with Day-to-Day Activities Not on file 01/04/2023 Lonely or Isolated Not on file 01/04/2023 Employment Answer Date Recorded Do you want help finding or keeping work or a jade b? Not on file 01/04/2023 Disabilities Answer Date Recorded Concentrating, Remembering, or Making Decisions Difficulty Not on file 01/04/2023 Doing Errands Independently Difficulty Not on fi le 01/04/2023 Education Answer Date Recorded Help with school or training? Not on file Preferred Language Not on file 01/04/2023 Comments Unknown Sex and Gender Information Value Date Recorded Sex Assigned at Not on file Legal Sex Female 12:31 PM EDT Gender Identity Not on file Sexual Orientation Not on file Plan of Treatment Health Maintenance Due Date Last Done Comments ANNUAL PHYSICAL 1961 Annual Gynecologic Pelvic an d Breast Exam 1961 HEPATITIS C SCREENING 1961 TDAP/TD VACCINES (1 - Tdap) 1980 MAMMOGRAM 2001 COLOGUARD 2006 COLON CANCER SCREENING 5 YEA R SIGMOIDOSCOPY 2006 COLONOSCOPY [address] CANCER SCREENING [address] CT COLONOGRAPHY 2006 FECAL OCCULT BLOOD TEST 2006 FIT Testing (1 year) 2006 Pneumococcal Vaccine 50+ (1 of 1 - PCV) 09/21/2011 ZOSTER VACCINE (1 of 2) 09/21/2011 INFLUENZA VACCINE 10/27/2024 12/21/2022, , 01/18/2020 Insurance EMPLOYEE Care Teams Count Room Clerk Relationship Specialty Start Date End Date Provider, No Known [facility] [place] [address] PCP - General 07/23/15
== END 2025-02-19 23:59 | disposition home or self-care (01) ==
LOC: LAB.DROPOF 02-20 08:25
PROVIDERS: PCP Family Medicine; Visit Provider Podiatrist
DX: B35.1 Tinea unguium (principal)
CPT/HCPCS: 87101; 87220

== ENCOUNTER 2025-02-21 12:44 | Outpatient (RCR) | payer BC, SELFPAY | END 2025-02-21 23:59 | disposition home or self-care (01) | LOC: PT 12:44 | PROVIDERS: PCP Family Medicine; Visit Provider Family Medicine | DX: T81.40XD Infection following a procedure, unspecified, subsequent encounter (principal) | CPT/HCPCS: 97140 ==

== ENCOUNTER 2025-03-01 12:21 | Outpatient (CLI) | payer BC, SELFPAY ==
--- OUTSIDE RECORDS SUMMARY | 2025-03-01 12:23 | XMS_ITS | Clinical Summary ---
[facility] Address [address] [place] [address] Care Team Providers Care Roofing Apprentice Name Role Phone Provider, No Known Primary Care Provider [phone] Social History Tobacco Use Types Packs/Day Years [...] 12/21/2022, , 01/18/2020 Insurance EMPLOYEE Care Teams Roofing Apprentice Relationship Specialty Start Date End Date Provider, No Known [facility] [place] [address] PCP - General 07/23/15
--- OUTSIDE RECORDS SUMMARY | 2025-03-01 12:23 | XMS_ITS | Clinical Summary ---
Author Organization [facility] Address [address] [place] [address] Phone Care Team Providers Care Brokerage Office Manager Name Role Phone Nickie DE LOS SANTOS, Justice Salcedo [phone] [ ] Conditions or Problems Problem Name Problem Code Onset Date Status Entry Date Provider Comment Standard Description Annotate Abscess, gluteal region L02.31 (ICD-10-CM ) 06/12 Active 06/12 Celeste Noah Cutaneous abscess of buttock Cellulitis, gluteal region L03.317 (ICD-10-CM ) 06/12 Active 06/12 Celeste Noah Cellulitis of buttock Lymphedema, left leg 595393824 (SNOMED CT) 06/11 Active 06/11 Justice Fu MD Lymphedema of lower extremity Group B streptococcus infection 916850744 (SNOMED CT) 06/05 Active 06/05 Celeste Noah Streptococcus agalactiae infection Cellulitis, toe, right 45346068 (SNOMED CT) 06/05 Active 06/05 Celeste Noha Cellulitis of toe Acute osteomyelitis, right foot/toe M86.171 (ICD-10-CM ) 06/05 Active 06/05 Celeste Noah Other acute osteomyelitis, right ankle and foot Cellulitis, RLE 433491475 (SNOMED CT) 06/05 Active 06/05 Celeste Noah Cellulitis of foot MRSA infection 520168146 (SNOMED CT) 06/05 Active 06/05 Celeste Noah Methicillin resistant Staphylococcus aureus infection Medications Medication Instructions Start Date Stop Date Generic Name ND Provider DOXYCYCLINE HYCLATE 100 MG CAPS 1 capsule by mouth twice a day doxycycline hyclate 91252537242 Justice Fu MD DOXYCYCLINE HYCLATE 50 MG CAPS strength unknown has three doses left doxycycline hyclate 50185293377 Loy Centeno GABAPENTIN 300 MG/6ML SOLN once a day puts a little dab on each foot before bed. gabapentin 33930829780 Loy Centeno CLOTRIMAZOLE ANTI-FUNGAL 1 % CREA Apply 1 as directed to affected area twice a day clotrimazole 75784821257 Justice Fu MD PRAVASTATIN SODIUM 40 MG TABS once a day 2 tabs a day pravastatin 18703186491 Elenita Barbosa GENTAMICIN SULFATE 0.1 % CREA Apply 1 a small amount to affected area once a day gentamicin 40531974466 Justice Fu MD CIPRO 500 MG TABS Take 1 tablet by mouth twice a day ciprofloxacin hcl 30178535640 Justice Fu MD CIPRO 500 MG TABS Take 1 tablet by mouth twice a day ciprofloxacin hcl 37497402076 Justiec Fu MD CIPROFLOXACIN HCL 500 MG TABS Take 1 tablet by mouth twice a day ciprofloxacin hcl 87137610892 Justice Fu MD NUZYRA 150 MG TABS Take 2 tablet by mouth once a day omadacycline 97465694781 Justice Fu MD vitamin S93-[id number] acid unspecified unspecified vitamin k04-kfaw c acid Kateryna Calina VITAMIN D3 10 MCG (400 UNIT) TABS cholecalciferol (vitamin d3) 54789294177 Kateryna Yayo MUCINEX 600 MG [id number] guaifenesin 29152375906 Kateryna Calina zinc amino acid chelate unspecified unspecified zinc amino acid chelate 49236000818 Kateryna Calina CHELATED MAGNESIUM 100 MG TABS magnesium amino acid chelate 66976955984 Kateryna Callakshmi PRAVASTATIN SODIUM 10 MG TABS once a day 2 tabs a day pravastatin 87722798443 Kateryna Callakshmi AMITRIPTYLINE HCL 25 MG TABS at bedtime amitriptyline 34700359158 Tracy Antonio HYDROXYZINE HCL 25 MG TABS every six hours as needed hydroxyzine hcl 62204202470 Tracy Antonio LEVOTHYROXINE SODIUM 50 MCG CAPS every morning levothyroxine 58620026364 Tracy Antonio PRAVASTATIN SODIUM 10 MG TABS once a day pravastatin 52058231638 Tracy Antonio Medications Administered No information available. [...] Range Flag Description Office Visit: 6 DIET P D DRIVER Yes - Overweight Dietary management education, guidance, and counseling (procedure) Lab Report: WOUND CULTURE ZZ-GE-unk Few (2+) Gram positive cocci in pairs GE use only - fo r LinkLogic import when terms are not otherwise specified Office Visit: Office Visit: 8 ORALTOBACUSE Never Tobacco smoking status SMOK STATUS Never smoker Toba inside sales account executive smoking status MEDS REVIEW Done Documenta tion of current medications (procedure) Plan of Care Type Date Detail Pending order Wound Culture an d Sensitivity w/Gram Stain Pending order Wound Culture an d Sensitivity w/Gram Stain Pending order Unna Boot Pending order Wound Culture an d Sensitivity w/Gram Stain Procedures Code Procedure Name Date Entry Date CPT-76245 Wound Culture and Sensitivity w/Gram Stai n CPT-84436 Wound Culture and Sensitivity w/Gram Stai n CPT-09629 Unna Boot CPT-26423 Wound Culture and Sensitivity w/Gram Stai n [...]
--- NOTE | 2025-03-01 13:00 | US_ITS ---
FINAL REPORT CLINICAL HISTORY: CLAUDICATION,LYMPHEDEMA FINDINGS: ANKLE-BRACHIAL PRESSURE INDICES Pressure indices are as follows: RIGHT LOWER EXTREMITY: Ankle-brachial pressure index: 1.37 Comments: Normal LEFT LOWER EXTREMITY: Ankle-brachial pressure index: 1.40 Comments: Normal IMPRESSION: No evidence of significant obstructive peripheral vascular disease of the lower extremities Reviewed, Interpreted and Dictated by Marco James MD Transcribed by Tracy Blanco Authenticated and [facility]
== END 2025-03-01 23:59 | disposition home or self-care (01) ==
LOC: RT 12:21
PROVIDERS: PCP Family Medicine; Visit Provider Podiatrist
DX: R20.8 Other disturbances of skin sensation (principal); R09.89 Other specified symptoms and signs involving the circulatory and respiratory systems
CPT/HCPCS: 93923